=== PATIENT | female | born 1950 | race Caucasian/White ===

== ENCOUNTER 2021-02-24 09:38 | Outpatient (REF) | payer MEDICARE, SELFPAY ==
[2021-02-24 10:55] LABS: COVID-19 Test Negative (Negative); IDNOW Serial# 16C4AD1C
== END 2021-02-24 09:39 | disposition home or self-care (01) ==
LOC: HO.LAB 09:38
PROVIDERS: Visit Provider Internal Medicine
DX: Z20.822 Contact with and (suspected) exposure to COVID-19 (principal)
CPT/HCPCS: 36415; 87635; C9803

== ENCOUNTER 2021-03-12 09:41 | Outpatient (REF) | payer MEDICARE, SELFPAY ==
[2021-03-12 10:48] LABS: Binax Internal Control QC Valid; Binax Now Covid-19 Ag Negative (Negative)
== END 2021-03-12 09:42 | disposition home or self-care (01) ==
LOC: HO.LAB 09:41
PROVIDERS: Visit Provider Internal Medicine
DX: Z20.822 Contact with and (suspected) exposure to COVID-19 (principal)
CPT/HCPCS: 36415; C9803

== ENCOUNTER 2021-03-18 10:48 | Outpatient (REF) | payer MEDICARE, SELFPAY ==
[2021-03-18 12:38] LABS: COVID-19 Test Negative (Negative); IDNOW Serial# 16C4AD1C
== END 2021-03-18 10:49 | disposition home or self-care (01) ==
LOC: HO.LAB 10:48
PROVIDERS: Visit Provider Internal Medicine
DX: Z20.822 Contact with and (suspected) exposure to COVID-19 (principal)
CPT/HCPCS: 87635; C9803

== ENCOUNTER 2021-03-26 14:47 | Outpatient (REF) | payer MEDICARE, SELFPAY ==
[2021-03-26 15:07] LABS: Binax Internal Control QC Valid; Binax Now Covid-19 Ag Negative (Negative)
== END 2021-03-26 14:48 | disposition home or self-care (01) ==
LOC: HO.LAB 14:47
PROVIDERS: Visit Provider Internal Medicine
DX: Z20.822 Contact with and (suspected) exposure to COVID-19 (principal)
CPT/HCPCS: C9803

== ENCOUNTER 2021-04-01 13:20 | Outpatient (REF) | payer MEDICARE, SELFPAY ==
[2021-04-01 14:07] LABS: COVID-19 Test Negative (Negative)
== END 2021-04-01 13:21 | disposition home or self-care (01) ==
LOC: HO.LAB 13:20
PROVIDERS: Visit Provider Internal Medicine
DX: Z20.822 Contact with and (suspected) exposure to COVID-19 (principal)
CPT/HCPCS: 87635; C9803

== ENCOUNTER 2021-04-14 14:37 | Outpatient (REF) | payer MEDICARE, SELFPAY ==
[2021-04-14 14:56] LABS: COVID-19 Test Negative (Negative); IDNOW Serial# 16C4AD1C
== END 2021-04-14 14:38 | disposition home or self-care (01) ==
LOC: HO.LAB 14:37
PROVIDERS: PCP Internal Medicine; Visit Provider Internal Medicine
DX: Z20.822 Contact with and (suspected) exposure to COVID-19 (principal)
CPT/HCPCS: 87635; C9803

== ENCOUNTER 2021-05-07 15:21 | Outpatient (REF) | payer MEDICARE, SELFPAY ==
[2021-05-07 16:01] LABS: COVID-19 Test Negative (Negative)
== END 2021-05-07 15:22 | disposition home or self-care (01) ==
LOC: HO.LAB 15:21
PROVIDERS: Visit Provider Internal Medicine
DX: Z20.822 Contact with and (suspected) exposure to COVID-19 (principal)
CPT/HCPCS: 87635; C9803

== ENCOUNTER 2021-07-06 13:34 | Outpatient (REF) | payer MEDICARE, SELFPAY ==
[2021-07-06 14:08] LABS: COVID-19 Test Negative (Negative); IDNOW Serial# 08D9AD1C
== END 2021-07-06 13:35 | disposition home or self-care (01) ==
LOC: HO.LAB 13:34
PROVIDERS: Visit Provider Internal Medicine
DX: Z20.822 Contact with and (suspected) exposure to COVID-19 (principal)
CPT/HCPCS: 87635; C9803

== ENCOUNTER 2021-09-09 15:06 | Outpatient (REF) | payer MEDICARE, SELFPAY ==
[2021-09-09 15:57] LABS: COVID-19 Test Negative (Negative)
== END 2021-09-09 15:07 | disposition home or self-care (01) ==
LOC: HO.LAB 15:06
PROVIDERS: Visit Provider Internal Medicine
DX: Z20.822 Contact with and (suspected) exposure to COVID-19 (principal)
CPT/HCPCS: 87635; C9803

== ENCOUNTER 2021-09-14 10:22 | Outpatient (REF) | payer MEDICARE, SELFPAY ==
[2021-09-14 11:13] LABS: COVID-19 Test Negative (Negative); IDNOW Serial# 9DB6401D
== END 2021-09-14 10:23 | disposition home or self-care (01) ==
LOC: HO.LAB 10:22
PROVIDERS: Visit Provider Internal Medicine
DX: Z20.822 Contact with and (suspected) exposure to COVID-19 (principal)
CPT/HCPCS: 87635; C9803

== ENCOUNTER → 2022-11-01 09:57 | Outpatient (REF) | payer MEDICARE, SELFPAY ==
--- NOTE | 2022-11-01 10:01 | CA_ITS ---
Transthoracic Echocardiogram Patient (Last, First, Middle): Daisha Clinton, Gender: Female Date of : 1950 Age: 72 Procedure Date: 11/01/2022 Procedure Type: Transthoracic Echocardiogram Location: OP Height: 154.94 cm Weight: 49.9 kg BSA: 1.47 m2 Heart Rate: bpm BP: 136 / 86 mmHg Manager Life Sciences: MARLY Referring MD: Yeyo Parmar MD Symptoms: QUINTANILLA R06.09 R94.31 ABNORMAL EKG Study Quality: Adequate ECG Rhythm: Sinus Conclusions: - The left ventricular systolic function is normal. The calculated ejection fraction is 68% by biplane method. - No obvious valvular pathology seen on this study. Findings Left Ventricle Normal left ventricular cavity size. There is normal left ventricular wall thickness. The left ventricular systolic function is normal. The calculated ejection fraction is 68% by biplane method. There is no evidence of regional wall motion abnormalities. Diastolic function is normal for age. LV peak GLS -19.5%. Right Ventricle Normal right ventricular cavity size and systolic function. Atria Both atria are normal in size. Aortic Valve There is a normal trileaflet aortic valve. There is no aortic valve stenosis. There is no aortic valve regurgitation. Mitral Valve The mitral valve appears normal. There is trace mitral valve regurgitation. There is no mitral valve stenosis. Pulmonic Valve The pulmonic valve was not well visualized. Tricuspid Valve Normal tricuspid valve structure. There is trace tricuspid valve regurgitation. There is no evidence of pulmonary hypertension. Great Vessels The asc aorta is normal in size. Venous The inferior vena cava is mildly dilated and collapses greater than 50% with inspiration. Pericardium/Pleural There is no evidence of pericardial effusion. Prior Study Comparison No prior study available for comparison. Recommendations, Care & Conclusions No obvious valvular pathology seen on this study. Measurements 2D Linear Measurements IVSd: 0.83 0.6-0.9/0.6-1.0 cm LVIDd: 3.60 3.9-5.3/4.2-5.9 cm LVIDd Index: 2.45 2.4-3.2/2.2-3.1 cm/m2 LVIDs: 2.37 2.0-3.6 cm LVPWd: 0.61 0.7-1.1 cm LA Diam: 2.40 2.7-3.8/3.0-4.0 cm LAIDs Index: 1.63 1.5-2.3 cm/m2 LV Mass: 84.31 67-162/88-224 g LV Mass Index: 57.35 43-95/49-115 g/m2 LVOT Diam: 1.60 3.0+(-)1.3 cm 2D Systolic Function EF 4C: 66.80 >55% EF 2C: 67.90 >55% EF BiP: 67.90 >55% Mitral Valve MV Pk E: 0.93 MV PK A: 0.91 MV Decel Time: 221.00 E/A: 1.00 E'Lateral: 6.96 E'Medial: 5.87 E/E' Med: 15.90 E/E' Lat: 13.40 PHT: 65.00 MVA PHT: 3.38 Decel [place]: 4.23 Aortic Valve AoV Pk Zach: 1.19 AoV Mn Zach: 0.94 AoV VTI: 0.32 AoV Pk Grad: 6.00 Aov Mn Grad: 4.00 LARRY Cont.VTI: 1.49 LVOT LVOT Pk Zach: 0.99 LVOT Mn Zach: 0.71 LVOT VTI: 0.24 LVOT Pk Grad: 4.00 LVOT Mn Grad: 2.00 LVOT Diam: 1.60 LVOT Area: 2.01 Diastolic Function MV Pk E: 0.93 MV Pk A: 0.91 E/A: 1.00 E'Medial: 5.87 E/E' Med: 15.90 E' Laterial: 6.96 E/E' Lat: 13.40 Right Ventricle TAPSE (mm): 23.00 TVS' Zach: 9.68 Tricuspid Valve TR Pk Zach: 2.00 TR Pk Grad: 16.00 RA Press: 8.00 RVSP: 24.00 Great Vessels Aorta Sinus of Valsalva: 3.23 2.0-3.5 cm Ao Asc: 3.30 2.1-3.4 cm Updated in Other Vendor System with Status of Final Jj Damon MD electronically signed on 11/01/2022 3:23:21 PM with status of Final
== END ==
LOC: HO.CARD 09:57
PROVIDERS: PCP Internal Medicine; Visit Provider Internal Medicine
DX: R06.09 Other forms of dyspnea (principal); R94.31 Abnormal electrocardiogram [ECG] [EKG]
CPT/HCPCS: 93306; 93356

== ENCOUNTER → 2022-11-01 10:01 | Outpatient (BNV) | payer MEDICARE, SELFPAY | PROVIDERS: PCP Internal Medicine; Visit Provider Internal Medicine | DX: R06.09 Other forms of dyspnea (principal); R94.31 Abnormal electrocardiogram [ECG] [EKG] | CPT/HCPCS: 93306 ==

== ENCOUNTER 2023-01-04 23:18 | Inpatient (IN) | payer MEDICARE, SELFPAY ==
--- NOTE | ~2023-01-04 | XR_ITS ---
EXAMINATION: XR CHEST CLINICAL INFORMATION: Question of free intraperitoneal air COMPARISON: None available. TECHNIQUE: Frontal view of the chest was obtained. FINDINGS: No significant abnormality is noted involving the heart, lungs, mediastinum, bony thorax or soft tissues. No free intraperitoneal air is seen beneath the hemidiaphragms. XR/XR chest 1V IMPRESSION: Unremarkable examination.
--- NOTE | ~2023-01-04 | CT_ITS ---
EXAMINATION: CT ABDOMEN AND PELVIS WITH CONTRAST CLINICAL INFORMATION: Epigastric pain. COMPARISON: None available. TECHNIQUE: Multidetector volumetric images were obtained from the superior aspect of the liver through the pubic symphysis following administration 85 mL of Omnipaque 350 intravenous contrast. Sagittal and coronal reformatted images were obtained on the technologist's workstation. Oral contrast: No This CT examination was performed using dose optimization techniques as appropriate, variously including the following: *Automated exposure control *Adjustment of mA and/or kV according to patient size (this includes techniques or standardized protocols for targeted exams where dose is matched to indication/reason for exam; i.e. extremities or head) *Use of iterative reconstruction technique DLP: 325 mGy-cm FINDINGS: LUNG BASES: The visualized lung bases are unremarkable. LIVER, GALLBLADDER, AND BILIARY TREE: The subcentimeter hypodensity at the dome of the liver likely a cyst. There is no intrahepatic biliary duct dilatation. The gallbladder is unremarkable with no evidence of radiopaque gallstones, gallbladder wall thickening, or obvious pericholecystic inflammatory changes. PANCREAS: Unremarkable. SPLEEN: Unremarkable. ADRENAL GLANDS: Unremarkable. KIDNEYS AND URETERS: The kidneys are normal in size, shape, and attenuation. No hydronephrosis, hydroureter, or calculi seen. No perinephric stranding. BLADDER: The urinary bladder is mildly distended. GASTROINTESTINAL TRACT: The appendix is not visualized. There is retained stool throughout the colon with some stool-like material within distal small bowel. There are prominent fluid-filled proximal to mid small bowel loops measuring up to 2.5 cm. The mid to distal small bowel is of normal caliber. ABDOMINAL WALL: No significant hernia is appreciated. LYMPH NODES: Normal. VASCULAR: Atherosclerotic plaque of the abdominal aorta and proximal branches. PELVIC VISCERA: The uterus is heterogeneous and slightly lobular. There is a small amount of free fluid within the pelvis. OSSEOUS STRUCTURES: There is diffuse thoracolumbar disc degenerative change. CT/CT abdomen pelvis w IV con IMPRESSION: Prominent fluid-filled proximal small bowel loops. Suspect an enteritis. Developing obstruction considered less likely. Correlation and follow-up needed. Retained stool throughout the colon with some stool-like material within distal small bowel possibly refluxed. Small amount of free fluid within the pelvis. Urinary bladder distention. Fleischner guidelines were followed.
[2023-01-04 23:27] VITALS: BP 181/87; PULSE 70; RESP 18; TEMP 36.7; O2SAT 99; BMI 20.2
--- NOTE | 2023-01-04 23:30 | PC.NURSE ---
pt from home reporting epigastric pain since 8pm. pt reports she was making dinner and before she was able to eat she got a sudden burning sensation in the epigastric region that radiated down her abdomen. pt reports 2 hours later she began to have nausea and vomiting. pt denies diarrhea, chest pain and SOB. pt able to ambulate at this time. pt normal sinus on tele [id number].
[2023-01-04 23:33] VITALS: O2SAT 98
--- NOTE | 2023-01-04 23:33 | ECG_ITS ---
Test Reason : abd pain Blood Pressure : / mmHG Vent. Rate : 069 BPM Atrial Rate : 069 BPM P-R Int : 174 ms QRS Dur : 082 ms QT Int : 416 ms P-R-T Axes : 058 053 059 degrees QTc Int : 445 ms Normal sinus rhythm Low voltage QRS Borderline ECG No previous ECGs available Referred By: Kacey Nguyen Electronically Signed By:NATALIIA SALAS MD
--- NOTE | 2023-01-04 23:48 | ED.ABDPAIN ---
HPI - Abdominal Pain General Chief Complaint: Abdominal Pain Stated Complaint: abdominal pain, nausea Time Seen by Provider: 01/04/23 23:33 Source: patient Mode of arrival: ambulatory Limitations: no limitations History of Present Illness HPI narrative: Patient comes to the emergency room complaining of nausea, 1 episode of vomiting and epigastric pain , burning sensation that started approximately 4 hours ago. Patient denies diarrhea, no fever or chills. Patient states that she was at home preparing dinner, did not get to eat, when the abdominal pain suddenly started. Patient states the epigastric pain radiates towards the lower abdomen. Patient admits that she takes 400 mg daily of ibuprofen for different musculoskeletal pains. Patient takes omeprazole at home Related Data Allergies Allergy/AdvReac Type Severity Reaction Status Date / Time No Known Allergies Allergy Verified 01/04/23 23:32 Review of Systems Review of Systems Constitutional : No Weight loss, No Fever, No Chills, No Night Sweats, No Fatigue, No Malaise ENT/Mouth : No Hearing loss, No Ear Pain, No Nasal Congestion, No Sinus Pain, No Hoarseness, No sore throat, No Rhinorrhea, No Swallowing Difficulty Eyes: No Eye Pain, No Swelling, No Redness, No Foreign Body, No Discharge, No Vision Changes Cardiovascular : No Chest Pain, No SOB, No Dyspnea on Exertion, No Orthopnea, No Edema, No Palpitations Respiratory : No Cough, No Sputum, No Wheezing, No Smoke Exposure, No Dyspnea Gastrointestinal : Complaining of nausea vomit No Diarrhea, No Constipation, complaining of burning epigastric pain, No Hematochezia, No Melena Genitourinary : no irregular bleeding, No Dysuria, No Urinary Frequency, No Hematuria, No Urinary Incontinence, No Urgency, No Flank Pain, No Urinary Flow Changes, No Hesitancy Musculoskeletal : No joint pain, No Myalgias, No Joint Swelling Skin : No Skin Lesions, No rash Neuro : No Weakness, No Numbness, No Paresthesias, No Loss of Consciousness, No Dizziness, No Headache Psych : No Anxiety/Panic, No Depression, No SI/HI/AH/VH, No Social Issues, Heme/Lymph: No Bruising, No Bleeding,No Lymphadenopathy Endocrine : No Polyuria, No Polydipsia, No Temperature Intolerance [facility] Past Medical History Medical History (Updated 01/05/23 @ 04:07 by Kacey Nguyen MD) Hypertension GERD (gastroesophageal reflux disease) Social History Social History Alcohol intake: current Alcohol intake frequency: 0-2 drinks per day Smoked in Last 30 Days: No Use of substances other than those prescribed or required for medical reasons: No Advance Directives: No Advance Directives Information Provided: Yes Physical Exam ED Vital Signs: Vital Signs - 24 hr 01/04/23 23:27 01/04/23 23:33 01/05/23 01:35 Temperature 98.1 F 98.0 F Pulse Rate 70 69 Respiratory Rate 18 18 Blood Pressure 181/87 H 183/95 H Pulse Oximetry 99 98 98 Oxygen Delivery Method Room Air Room Air Room Air 01/05/23 03:12 Temperature 98.1 F Pulse Rate 77 Respiratory Rate 16 Blood Pressure 130/79 Pulse Oximetry 96 Oxygen Delivery Method Room Air BMI result Body Mass Index 20.2 Const Other: Appearance: Alert. Oriented X3. No acute distress. All appear Eyes: Pupils equal, round and reactive to light. ENT: Pharynx normal. Neck: Normal inspection. Neck supple. No lymph nodes noted. No crepitus CVS: Normal heart rate and rhythm. Pulses normal. Normal S1 and S2 Respiratory: No respiratory distress. Breath sounds normal. No Wheezing. No rales Abdomen: Soft , mild tenderness in epigastric area and left upper quadrant. No rebound, no guarding, negative Pickering sign Skin: Skin warm and dry. Normal skin color. Normal skin turgor. Extremities: No lower extremity edema. No Lacerations. No Rash Neuro: Oriented X 3. No motor deficit. No sensory deficit. Moving all extremities. No slurred speech. CN 2 through 12 grossly intact Psych: calm, cooperative, normal affect Course Course Course Narrative: -patient receiving IV fluids, famotidine, Zofran -of patient's labs and imaging pending Medical Decision Making Medical Decision Making MDM Narrative: -my interpretation of labs, hemoglobin and chemistry do not show any significant abnormalities. LFTs and lipase within normal limits. -patient was given IV Zofran, Pepcid without any relief. Then patient was given a dose of IV morphine. Patient still complaining of significant abdominal pain. Patient was given a dose of Dilaudid and a dose of Compazine IV for ongoing nausea. -CT scan of the abdomen shows enteritis. -patient has had multiple doses of morphine and Dilaudid. Patient overall feeling better. However, given the large amount of pain medications that she has required to be comfortable and have the pain tolerable, is best if patient gets admitted. -I discussed the patient with Dr. Joe, patient being admitted. Patient agrees with plan. Differential Diagnosis Differential Diagnoses: The differential diagnosis associated with the presentation includes (Gastroenteritis, enteritis, peptic ulcer disease, perforation, small-bowel obstruction) Admission/Observation Consideration of admission/observation: Escalation of care including admission/observation considered Consult Healthcare Provider Management of the patient was discussed with: Hospitalist Lab Data MDM Lab Attestation statement: I reviewed the patient's lab results. 01/04/23 23:43 01/05/23 00:58 Labs: Lab Results 01/04/23 01/05/23 01/05/23 Range/Units 23:43 00:58 02:08 WBC 10.9 H (4.8-10.8) X10*3/uL RBC 3.79 L (4.20-5.50) X10*6/uL Hgb 12.6 (12.0-16.0) g/dl Hct 35.7 L (37.0-47.0) % MCV 94.2 (80.0-98.0) fL MCH 33.2 H (27.0-33.0) pg MCHC 35.3 H (31.0-35.0) g/dl RDW 12.0 (11.0-16.0) % Plt Count 176 (160-400) X10*3/uL MPV 10.4 (9.4-12.3) fL Immature Gran % (Auto) 1.0 H (0.0-0.4) % Neut % (Auto) 82.6 H (45-73) % Lymph % (Auto) 10.7 L (20-40) % [place] % (Auto) 5.0 (2-11) % Eos % (Auto) 0.3 (0-4) % Baso % (Auto) 0.4 (0-2) % Lymph # (Auto) 1.2 (1.2-4.9) X10*3/uL [place] # (Auto) 0.5 (0.1-1.2) X10*3/uL Eos # (Auto) 0.0 (0.0-0.4) X10*3/uL Baso # (Auto) 0.0 (0.0-0.2) X10*3/uL Abs Immat Gran (auto) 0.11 H (0.00-0.03) X10*3/uL Absolute Neuts (auto) 9.0 H (2.0-8.3) x10*3/uL Absolute Nucleated RBC 0.000 (0.0-0.012) X10*3/uL Nucleated RBC % (auto) 0.0 (0.0-0.2) /100WBC Sodium 133 L (135-145) mmol/L Potassium 3.5 (3.3-5.1) mmol/L Chloride 99 (96-108) mmol/L Carbon Dioxide 17 L (22-29) mmol/L Anion Gap 21 H (12-20) BUN 9 (9-16) mg/dL Creatinine 0.60 (0.5-1.4) mg/dL Estim Creat Clear Calc 67.0 Estimated GFR > 60 Random Glucose 122 H (60-115) mg/dL Calcium 9.1 (8.4-10.2) mg/dL Total Bilirubin 0.6 (0.0-1.0) mg/dL Direct Bilirubin 0.2 (0.0-0.5) mg/dL AST 29 (5-31) U/L ALT 17 (0-31) U/L Alkaline Phosphatase 67 (39-117) U/L Troponin I High Sens < 2.7 (<3.5-17.0) ng/L Total Protein 6.9 (6.5-8.0) g/dL Albumin 4.1 (3.5-5.0) g/dL Lipase 25 (8-78) U/L Urine Color Yellow Urine Appearance Clear Urine pH 7.0 (5.0-9.0) Ur Specific [place] 1.020 (1.005-1.025) Urine Protein Negative (Neg-Trace) mg/dL Urine Glucose (UA) Negative (Negative) mg/dL Urine Ketones Trace (Negative) mg/dL Urine Blood Negative (Negative) Urine Nitrite Negative (Negative) Ur Leukocyte Esterase Negative (Negative) Independent Interpretation I performed an independent interpretation of an: EKG (My interpretation of EKG: Normal sinus rhythm, heart rate 69, no ST segment depression or elevation, no T-wave inversion, QTC 445) Radiology Impression Discussion of test interpretation with radiology: I have reviewed the radiologist's reading. Radiologist Impression: FINDINGS: LUNG BASES: The visualized lung bases are unremarkable. LIVER, GALLBLADDER, AND BILIARY TREE: The subcentimeter hypodensity at the dome of the liver likely a cyst. There is no intrahepatic biliary duct dilatation. The gallbladder is unremarkable with no evidence of radiopaque gallstones, gallbladder wall thickening, or obvious pericholecystic inflammatory changes. PANCREAS: Unremarkable. SPLEEN: Unremarkable. ADRENAL GLANDS: Unremarkable. KIDNEYS AND URETERS: The kidneys are normal in size, shape, and attenuation. No hydronephrosis, hydroureter, or calculi seen. No perinephric stranding. BLADDER: The urinary bladder is mildly distended. GASTROINTESTINAL TRACT: The appendix is not visualized. There is retained stool throughout the colon with some stool-like material within distal small bowel. There are prominent fluid-filled proximal to mid small bowel loops measuring up to 2.5 cm. The mid to distal small bowel is of normal caliber. ABDOMINAL WALL: No significant hernia is appreciated. LYMPH NODES: Normal. VASCULAR: Atherosclerotic plaque of the abdominal aorta and proximal branches. PELVIC VISCERA: The uterus is heterogeneous and slightly lobular. There is a small amount of free fluid within the pelvis. OSSEOUS STRUCTURES: There is diffuse thoracolumbar disc degenerative change. CT/CT abdomen pelvis w IV con IMPRESSION: Prominent fluid-filled proximal small bowel loops. Suspect an enteritis. Developing obstruction considered less likely. Correlation and follow-up needed. Retained stool throughout the colon with some stool-like material within distal small bowel possibly refluxed. Small amount of free fluid within the pelvis. Urinary bladder distention. Fleischner guidelines were followed. Medications Administered Discontinued Medications Generic Name Dose Route Start Last Admin Trade Name Freq PRN Reason Stop Dose Admin Famotidine 20 mg 01/04/23 23:42 01/05/23 00:33 Famotidine/Pf 20 Mg/2 Ml Vial IVPUSH 01/04/23 23:43 20 mg ONCE ONE Administration Hydromorphone HCl 1 mg 01/05/23 01:32 01/05/23 02:04 Hydromorphone Hcl 1 Mg/Ml Syringe IVPUSH 01/05/23 01:33 1 mg ONCE ONE Administration Protocol Sodium Chloride 1,000 mls @ 999 mls/hr 01/04/23 23:42 01/05/23 02:07 Ns IVCONT 01/05/23 00:42 Infused .Q1H1M ONE Infusion Iohexol 85 ml 01/05/23 01:47 01/05/23 01:48 Iohexol 350 Mg/Ml 100 Ml Infus..Btl IV 01/05/23 01:48 85 ml ONCE ONE Administration Morphine Sulfate 4 mg 01/05/23 00:43 01/05/23 00:50 Morphine Sulfate 4 Mg/Ml Cartridge IVPUSH 01/05/23 00:44 4 mg ONCE ONE Administration Protocol Ondansetron HCl 4 mg 01/04/23 23:42 01/05/23 00:33 Ondansetron Hcl 4 Mg/2 Ml Vial IVPUSH 01/04/23 23:43 4 mg ONCE ONE Administration Prochlorperazine Edisylate 10 mg 01/05/23 01:34 01/05/23 02:04 Prochlorperazine Edisylate 10 Mg/2 Ml Vial IVPUSH 01/05/23 01:35 10 mg ONCE ONE Administration Critical Care Time Critical Care Time Critical Care Time: Yes Total Critical Care Time: 60 Attestation: I have personally provided critical care time. Time includes review of lab data, radiology results, discussion with consultants, and monitoring for potential decompensation. Intervention performed as documented. Discharge Plan Discharge Clinical Impression: Enteritis Patient Disposition: Admitted As Inpatient
[2023-01-05] VITALS (9 sets, daily range): BP systolic 130–183; BP diastolic 74–100; PULSE 69–77; RESP 11–18; TEMP 36.3–36.8; O2SAT 96–99; BMI 21.9
--- NOTE | 2023-01-05 00:27 | MHC.EDTECH ---
Late Entry, This tech took over care at 2335, Patient was placed on the cardiac rn and EKG taken.
[2023-01-05] MEDS: 0.9 % Sodium Chloride 1,000 ML 999 ML IVCONT (00:32)
[2023-01-05] MEDS: ondansetron HCL 4 MG/2 ML VIAL IVPUSH ×3 (00:33→20:48)
[2023-01-05] MEDS: Famotidine/PF 20 MG/2 ML VIAL IVPUSH (00:33)
[2023-01-05 00:41] LABS: Basophils Percent Auto 0.4 % (0-2); Eosinophils Percent Auto 0.3 % (0-4); Hematocrit 35.7 % (37.0-47.0); Hemoglobin 12.6 g/dl (12.0-16.0); Imm Gran Abs Auto 0.11 X10*3/uL (0.00-0.03); Lymphocytes Absolute Auto 1.2 X10*3/uL (1.2-4.9); Lymphocytes Percent Auto 10.7 % (20-40); MANUAL DIFF FLAG NO; Mean Corpuscular HGB Conc 35.3 g/dl (31.0-35.0); Mean Corpuscular Hemoglobin 33.2 pg (27.0-33.0); Mean Corpuscular Volume 94.2 fL (80.0-98.0); Mean Platelet Volume 10.4 fL (9.4-12.3); Monocytes Absolute Auto 0.5 X10*3/uL (0.1-1.2); Neutrophils Percent Auto 82.6 % (45-73); Platelet Count 176 X10*3/uL (160-400); Red Blood Count 3.79 X10*6/uL (4.20-5.50); White Blood Count 10.9 X10*3/uL (4.8-10.8)
[2023-01-05] MEDS: Morphine Sulfate 4 MG/ML CARTRIDGE IVPUSH (00:50)
[2023-01-05 01:21] LABS: Alanine Aminotransferase 17 U/L (0-31); Albumin Level 4.1 g/dL (3.5-5.0); Alkaline Phosphatase 67 U/L (39-117); Anion Gap 21 (12-20); Aspartate Amino Transferase 29 U/L (5-31); Bilirubin Direct 0.2 mg/dL (0.0-0.5); Bilirubin Total 0.6 mg/dL (0.0-1.0); Blood Urea Nitrogen 9 mg/dL (9-16); Calcium 9.1 mg/dL (8.4-10.2); Carbon Dioxide 17 mmol/L (22-29); Chloride 99 mmol/L (96-108); Estimated Glomerular Filt Rate > 60; Glucose Random 122 mg/dL (60-115); Lipase 25 U/L (8-78); Potassium 3.5 mmol/L (3.3-5.1); Sodium 133 mmol/L (135-145); Total Protein 6.9 g/dL (6.5-8.0)
[2023-01-05 01:27] LABS: Troponin-I High Sensitivity < 2.7 ng/L (<3.5-17.0)
[2023-01-05] MEDS: iohexoL 350 MG/ML 100 ML INFUS..BTL 85 ML IV (01:48)
--- NOTE | 2023-01-05 01:51 | MHC.EDTECH ---
Hourly rounds and vitals were completed,Patient's BP is elevated at 183/69 and patient stated she was still in pain and being nauseous,this tech made provider and RN aware. .
[2023-01-05] MEDS: Prochlorperazine Edisylate 10 MG/2 ML VIAL IVPUSH (02:04)
[2023-01-05] MEDS: HYDROmorphone HCl 1 MG/ML SYRINGE IVPUSH (02:04)
[2023-01-05 02:16] LABS: Appearance Urine Clear; Color Urine Yellow; Glucose Urine UA Negative (Negative); Leukocyte Esterase Urine Negative (Negative); Nitrite Urine Negative (Negative); Urine Blood Negative (Negative); Urine Ketones Trace mg/dL (Negative); Urine Protein Negative (Neg-Trace)
--- NOTE | 2023-01-05 04:09 | PC.NURSE ---
hospitalist at bedside discussing pt care with admission.
--- NOTE | 2023-01-05 04:20 | PM.IMHP ---
History of Present Illness Date of Service: 01/05/23 Chief Complaint: N/V 72F PMH HTN, GERD, chronic shoulder pain on ibuprofen 400mg bid, presented with nausea and vomiting. patient reports feeling well until evening of presentation. she was cooking dinner and suddenly felt epigastric burining pain. started to have nausea and vomitting. denies fever, chills, no sick contacts. in ED CT abd showed Prominent fluid-filled proximal small bowel loops. Suspect an enteritis. Developing obstruction considered less likely. Review of Systems Review of Systems: Yes all other systems are reviewed and are negative [facility] Medical History (Updated 01/05/23 @ 04:07 by Kacey Nguyen MD) Hypertension GERD (gastroesophageal reflux disease) Social History Alcohol intake: current Alcohol intake frequency: 0-2 drinks per day Smoked in Last 30 Days: No Use of substances other than those prescribed or required for medical reasons: No Advance Directives: No Advance Directives Information Provided: Yes Meds Allergies Allergy/AdvReac Type Severity Reaction Status Date / Time No Known Allergies Allergy Verified 01/04/23 23:32 Active Medications: Current Medications Enoxaparin Sodium (Enoxaparin Sodium 40 Mg/0.4 Ml Syringe) 40 mg SUBCUT Q24H ANDREZ Hydromorphone HCl (Hydromorphone Hcl 0.5 Mg/0.5 Ml Syringe) 0.5 mg IVPUSH Q4H PRN; Protocol PRN Reason: moderate pain Sodium Chloride (Ns) 1,000 mls @ 75 mls/hr IVCONT .[id number] [facility] Ondansetron HCl (Ondansetron Hcl 4 Mg/2 Ml Vial) 4 mg IVPUSH Q6H PRN PRN Reason: Nausea Sodium Chloride (0.9 % Sodium Chloride Flush 3 Ml Syringe) 3 ml IVFLUSH QSHIFT [facility] Home Medications Medication Instructions Recorded Confirmed Last Taken Type lisinopril 10 mg tablet 10 mg PO DAILY 01/05/23 01/05/23 Unknown History omeprazole 20 mg capsule,delayed 20 mg PO DAILY 01/05/23 01/05/23 Unknown History release Physical Exam Vital Signs and Narrative: Vital Signs: Last Vital Signs Temp 98.1 F 01/05/23 03:12 Pulse 77 01/05/23 03:12 Resp 16 01/05/23 03:12 BP 130/79 01/05/23 03:12 Pulse Ox 96 01/05/23 03:12 O2 Del Method Room Air 01/05/23 03:12 BMI result Body Mass Index 20.2 General: AO X 3, no acute distress Resp: CTA bilateral, no accessory muscles used CVS: S1,S2,RRR GI: soft, non tender, non distended Neuro: motor grossly intact, alert Psych: appropriate affect, appropriate insight Results Labs 01/04/23 23:43 01/05/23 00:58 Labs: Laboratory Results - last 24 hr 01/04/23 01/05/23 01/05/23 23:43 00:58 02:08 MCV 94.2 MCH 33.2 H MCHC 35.3 H RDW 12.0 Plt Count 176 MPV 10.4 Immature Gran % (Auto) 1.0 H Neut % (Auto) 82.6 H Lymph % (Auto) 10.7 L [place] % (Auto) 5.0 Eos % (Auto) 0.3 Baso % (Auto) 0.4 Lymph # (Auto) 1.2 [place] # (Auto) 0.5 Eos # (Auto) 0.0 Baso # (Auto) 0.0 Abs Immat Gran (auto) 0.11 H Absolute Neuts (auto) 9.0 H Absolute Nucleated RBC 0.000 Nucleated RBC % (auto) 0.0 Anion Gap 21 H Estim Creat Clear Calc 67.0 Estimated GFR > 60 Random Glucose 122 H Calcium 9.1 Total Bilirubin 0.6 Direct Bilirubin 0.2 AST 29 ALT 17 Alkaline Phosphatase 67 Total Protein 6.9 Albumin 4.1 Lipase 25 Urine Color Yellow Urine Appearance Clear Urine pH 7.0 Ur Specific [place] 1.020 Urine Protein Negative Urine Glucose (UA) Negative Urine Ketones Trace Urine Blood Negative Urine Nitrite Negative Ur Leukocyte Esterase Negative Imaging Radiologist's Impressions: Impressions Chest X-Ray 01/04/23 23:59 IMPRESSION: Unremarkable examination. Abdomen/Pelvis CT 01/05/23 01:55 IMPRESSION: Prominent fluid-filled proximal small bowel loops. Suspect an enteritis. Developing obstruction considered less likely. Correlation and follow-up needed. Retained stool throughout the colon with some stool-like material within distal small bowel possibly refluxed. Small amount of free fluid within the pelvis. Urinary bladder distention. Fleischner guidelines were followed. Assessment and Plan (1) Enteritis: Status: Acute Plan 72F PMH HTN, GERD, chronic shoulder pain on ibuprofen 400mg bid, presented with nausea and vomitting acute enteritis IVF, antiemetics, pain control, clears liquid diet for now, advance as tolerated htn lisinopril gerd ppi dvt prophylaxis - lovenox full code Quality Stroke Does the patient have a stroke diagnosis?: No VTE Prior VTE?: No VTE Risk Level:: Medical - moderate - high VTE Device Contraindication: Treatment Not Indicated VTE Drug Contraindication: N/A - Med Ordered
--- NOTE | 2023-01-05 04:35 | PC.NURSE ---
this rn and physician relations manager catalina completed pt medreq. pt reports she takes omeprazol in the morning as well as a womens multivitamin. pt reports taking lisinapril in the pm as well as 2 100mg colace.
[2023-01-05] MEDS: 0.9 % Sodium Chloride 1,000 ML 75 ML IVCONT ×2 (04:53→17:53)
[2023-01-05] MEDS: HYDROmorphone HCl 0.5 MG/0.5 ML SYRINGE IVPUSH ×3 (05:58→20:47)
--- NOTE | 2023-01-05 06:04 | PC.NURSE ---
pt actively vomiting and in pain at this time, hospitalist Lissy, telephone order okay to give nausea medication and pain medication early.
--- NOTE | 2023-01-05 06:42 | PC.NURSE ---
pt reports nausea, vomiting and pain has subsided.
--- NOTE | 2023-01-05 07:36 | PHA.MEDREC ---
Pharmacy Consult ? Medication Reconciliation Pharmacy has completed the medication reconciliation. pharmacy has reviewed med rec done by nursing
--- NOTE | 2023-01-05 09:35 | MHC.CM.PN ---
[place]hel[place] 01/05/23, Pt lives independently, she has no home health services or med equip. she has not utilized VNA services or STR. HCP is her , she completed form here for file. will transport home. Plan is home, self care. PCP: Yeyo Parmar
[2023-01-05] MEDS: Enoxaparin Sodium 40 MG/0.4 ML SYRINGE SUBCUT (10:44)
[2023-01-05] MEDS: lisinopriL 10 MG TABLET PO (10:44)
[2023-01-05] MEDS: Docusate Sodium 100 MG CAPSULE 200 MG PO (10:44)
[2023-01-05] MEDS: Omeprazole 20 MG CAPSULE.DR PO (10:50)
--- NOTE | 2023-01-05 11:06 | P.CONGS_ITS ---
History of Present Illness Consult details Consult date: 01/05/23 Requesting physician: Ting Singh Narrative: 72 year old female with PMH of HTN, HERD who presented to the ED with complaints of abdominal pain. She reports the pain started around 8pm while she was preparing dinner. The pain is located in the epigastric region and radiates down to her lower abdomen and was severe. It was associated with one episode of nausea and vomiting. She denies passing flatus but had a normal BM yesterday morning. She denies fever, chills, diarrhea, blood in stool or dark tarry stools, back pain. Work up in the ED included CBC, BMP, LFTs which was significant for a mild leukocytosis of 10.9. CT scan without PO contrast showed prominent fluid-filled proximal small bowel loops. This morning she feels somewhat improved and the pain is less severe. Her last colonoscopy was in 2019 and showed diverticulosis. She has no previous abdominal surgeries. Review of Systems 2 Constitutional: Constitutional: Reports as per HPI ENT: Denies dizziness Cardiovascular: Cardiovascular: Denies chest pain and Denies dyspnea Respiratory: Respiratory: Denies cough and Denies dyspnea Gastrointestinal: Gastrointestinal: Reports as per HPI Integumentary/Breasts: Skin/Breast: Denies rash and Denies jaundice Neurologic: Denies dizziness PMFSH Past Medical History Medical History (Updated 01/05/23 @ 04:07 by Kacey Nguyen MD) Hypertension GERD (gastroesophageal reflux disease) Social History Social History Alcohol intake: current Alcohol intake frequency: 0-2 drinks per day Patient Tobacco Use Status: Never used Tobacco Smoked in Last 30 Days: No Use of substances other than those prescribed or required for medical reasons: No Advance Directives: No Advance Directives Information Provided: Yes Nutrition Risks: No Nutritional Risk service: No Meds Allergies Allergy/AdvReac Type Severity Reaction Status Date / Time No Known Allergies Allergy Verified 01/04/23 23:32 Active Medications: Current Medications Docusate Sodium (Docusate Sodium 100 Mg Capsule) 200 mg PO DAILY [facility] Last Admin: 01/05/23 10:44 Dose: 200 mg Enoxaparin Sodium (Enoxaparin Sodium 40 Mg/0.4 Ml Syringe) 40 mg SUBCUT Q24H [facility] Last Admin: 01/05/23 10:44 Dose: 40 mg Hydromorphone HCl (Hydromorphone Hcl 0.5 Mg/0.5 Ml Syringe) 0.5 mg IVPUSH Q4H PRN; Protocol PRN Reason: moderate pain Last Admin: 01/05/23 10:44 Dose: 0.5 mg Sodium Chloride (Ns) 1,000 mls @ 75 mls/hr IVCONT .[id number] [facility] Last Admin: 01/05/23 04:53 Dose: 75 mls/hr Lisinopril (Lisinopril 10 Mg Tablet) 10 mg PO DAILY [facility]; Protocol Last Admin: 01/05/23 10:44 Dose: 10 mg Omeprazole (Omeprazole 20 Mg Capsule.Dr) 20 mg PO DAILY [facility] Last Admin: 01/05/23 10:50 Dose: 20 mg Ondansetron HCl (Ondansetron Hcl 4 Mg/2 Ml Vial) 4 mg IVPUSH Q6H PRN PRN Reason: Nausea Last Admin: 01/05/23 05:59 Dose: 4 mg Sodium Chloride (0.9 % Sodium Chloride Flush 3 Ml Syringe) 3 ml IVFLUSH QSHIFT [facility] Last Admin: 01/05/23 08:41 Dose: Not Given Home Medications Medication Instructions Recorded Confirmed Last Taken Type Multi Vitamin See Rx Instructions .Route .COMPLEX 01/05/23 01/05/23 Unknown History docusate sodium 100 mg capsule 200 mg PO DAILY 01/05/23 01/05/23 Unknown History (Colace) lisinopril 10 mg tablet 10 mg PO DAILY 01/05/23 01/05/23 Unknown History omeprazole 20 mg capsule,delayed 20 mg PO DAILY 01/05/23 01/05/23 Unknown History release Physical Exam 2 Vital Signs: Vital Signs: Last Vital Signs Temp 98.1 F 01/05/23 03:12 Pulse 73 01/05/23 05:32 Resp 11 L 01/05/23 05:32 BP 138/100 H 01/05/23 05:32 Pulse Ox 99 01/05/23 05:32 O2 Del Method Room Air 01/05/23 05:32 BMI result Body Mass Index 20.2 Const: General: comfortable, no acute distress and alert O rientation/consciousness: patient oriented x3 Resp: Effort & Inspection: normal respiratory effort Cardio: Rate: regular rate GI: Inspection: No distended and No scar Palpation (GI): Soft to palpation, Tenderness to palpation present (GI) in the epigastrum (very mild to deep palpation), no guarding and not rigid Percussion: Yes normal to percussion Skin: General skin exam: no rashes or lesions noted Neuro: General: patient oriented x3 and moves all extremities Results Labs 01/04/23 23:43 01/05/23 00:58 Labs: Abnormal lab results 01/04/23 01/05/23 Range/Units 23:43 00:58 WBC 10.9 H (4.8-10.8) X10*3/uL RBC 3.79 L (4.20-5.50) X10*6/uL Hct 35.7 L (37.0-47.0) % MCH 33.2 H (27.0-33.0) pg MCHC 35.3 H (31.0-35.0) g/dl Immature Gran % (Auto) 1.0 H (0.0-0.4) % Neut % (Auto) 82.6 H (45-73) % Lymph % (Auto) 10.7 L (20-40) % Abs Immat Gran (auto) 0.11 H (0.00-0.03) X10*3/uL Absolute Neuts (auto) 9.0 H (2.0-8.3) x10*3/uL Sodium 133 L (135-145) mmol/L Carbon Dioxide 17 L (22-29) mmol/L Anion Gap 21 H (12-20) Random Glucose 122 H (60-115) mg/dL Short CBC 01/04/23 Range/Units 23:43 WBC 10.9 H (4.8-10.8) X10*3/uL Hgb 12.6 (12.0-16.0) g/dl Hct 35.7 L (37.0-47.0) % Plt Count 176 (160-400) X10*3/uL BMP 01/05/23 00:58 Sodium 133 L Potassium 3.5 Chloride 99 Carbon Dioxide 17 L BUN 9 Creatinine 0.60 Calcium 9.1 Liver Function 01/05/23 Range/Units 00:58 Total Bilirubin 0.6 (0.0-1.0) mg/dL Direct Bilirubin 0.2 (0.0-0.5) mg/dL AST 29 (5-31) U/L ALT 17 (0-31) U/L Alkaline Phosphatase 67 (39-117) U/L Albumin 4.1 (3.5-5.0) g/dL Urine 01/05/23 Range/Units 02:08 Urine Color Yellow Urine Appearance Clear Urine pH 7.0 (5.0-9.0) Ur Specific [place] 1.020 (1.005-1.025) Urine Protein Negative (Neg-Trace) mg/dL Urine Glucose (UA) Negative (Negative) mg/dL All other labs normal. Imaging Abdomen CT scan report/results: report reviewed and image reviewed Assessment and Plan (1) Enteritis: Status: Acute Plan 72 year old female who presented with acute onset of abdominal pain, nausea and vomiting with CT scan showing possible small bowel dilatation. Her abdomen is benign and soft and nondistended. Clinically she is not obstructed. Picture more suggestive of enteritis. Can manage supportively and advance diet as tolerated. If symptoms recur or worsen can consider SBFT or CT with oral contrast to further evaluate for obstruction. Procedures Date of Service Date of Service: 01/05/23
--- NOTE | 2023-01-05 15:29 | PM.EVENT ---
Event Note Date of Service: 01/05/23 Event Note: Seen and evaluated Nausea improved since morning No bowel movements or passing gas yet No fever or chills Continue IVF and symptomatic measures Surgery input appreciated Time Spent With Patient Time: Total time managing care of this patient today ____ minutes.
[2023-01-06 03:39] VITALS: BP 147/76; PULSE 78; RESP 18; TEMP 36.5; O2SAT 95
[2023-01-06 05:47] LABS: Hematocrit 36.3 % (37.0-47.0); Hemoglobin 12.5 g/dl (12.0-16.0); Mean Corpuscular HGB Conc 34.4 g/dl (31.0-35.0); Mean Corpuscular Hemoglobin 33.2 pg (27.0-33.0); Mean Corpuscular Volume 96.5 fL (80.0-98.0); Mean Platelet Volume 10.2 fL (9.4-12.3); Platelet Count 167 X10*3/uL (160-400); Red Blood Count 3.76 X10*6/uL (4.20-5.50); Red Cell Distribution Width 12.3 % (11.0-16.0); White Blood Count 7.2 X10*3/uL (4.8-10.8)
[2023-01-06] MEDS: 0.9 % Sodium Chloride 1,000 ML 75 ML IVCONT (05:57)
[2023-01-06 06:05] LABS: Alanine Aminotransferase 13 U/L (0-31); Albumin Level 3.5 g/dL (3.5-5.0); Alkaline Phosphatase 58 U/L (39-117); Anion Gap 11 (12-20); Aspartate Amino Transferase 21 U/L (5-31); Bilirubin Direct 0.3 mg/dL (0.0-0.5); Bilirubin Total 0.9 mg/dL (0.0-1.0); Blood Urea Nitrogen 11 mg/dL (9-16); Calcium 8.4 mg/dL (8.4-10.2); Carbon Dioxide 24 mmol/L (22-29); Chloride 101 mmol/L (96-108); Creatinine Clr Calc Pharmacy 58.2; Estimated Glomerular Filt Rate > 60; Glucose Fasting 92 mg/dL (60-99); Magnesium 1.8 mg/dL (1.6-2.6); Potassium 3.4 mmol/L (3.3-5.1); Sodium 133 mmol/L (135-145); Total Protein 5.9 g/dL (6.5-8.0)
[2023-01-06 07:37] VITALS: BP 152/78; PULSE 76; RESP 20; TEMP 36.2; O2SAT 97
[2023-01-06] MEDS: lisinopriL 10 MG TABLET PO (08:29)
[2023-01-06] MEDS: Docusate Sodium 100 MG CAPSULE 200 MG PO (08:29)
[2023-01-06] MEDS: Enoxaparin Sodium 40 MG/0.4 ML SYRINGE SUBCUT (08:29)
[2023-01-06] MEDS: Omeprazole 20 MG CAPSULE.DR PO (08:29)
[2023-01-06] MEDS: Metoclopramide HCl 5 MG TABLET PO (08:34)
[2023-01-06 11:45] VITALS: BP 153/79; PULSE 77; RESP 20; TEMP 36.3; O2SAT 97
--- NOTE | 2023-01-06 14:54 | HO.PM.IMPN ---
Subjective Subjective Date of Service: 01/06/23 Interval History: Feels better overall less nausea, tolerating liquids passing gas but no bowel movement yet No fever or chills Review of Systems Review of Systems: Yes all other systems are reviewed and are negative Physical Exam Vital Signs: Vital Signs: Last Vital Signs Temp 97.3 F 01/06/23 11:45 Pulse 77 01/06/23 11:45 Resp 20 01/06/23 11:45 BP 153/79 H 01/06/23 11:45 Pulse Ox 97 01/06/23 11:45 O2 Del Method Room Air 01/06/23 11:45 BMI result Body Mass Index 21.9 Const: Other: Constitutional : Awake, interactive, not in distress Neck : Normal inspection, Supple Cardiovascular : RRR, no JVP, no lower extremity edema Respiratory : good bilateral air entry, no crackles, wheezes or rhonchi Gastrointestinal: soft, lax, slow bowel sounds, Non tender Skin : Warm, Dry Neurological : Alert & oriented x3, No focal deficit Objective Data Active Medications Docusate Sodium (Docusate Sodium 100 Mg Capsule) 200 mg PO DAILY [facility] Last Admin: 01/06/23 08:29 Dose: 200 mg Documented By: BRAD Enoxaparin Sodium (Enoxaparin Sodium 40 Mg/0.4 Ml Syringe) 40 mg SUBCUT Q24H [facility] Last Admin: 01/06/23 08:29 Dose: 40 mg Documented By: BRAD Hydromorphone HCl (Hydromorphone Hcl 0.5 Mg/0.5 Ml Syringe) 0.5 mg IVPUSH Q4H PRN; Protocol PRN Reason: moderate pain Last Admin: 01/05/23 20:47 Dose: 0.5 mg Documented By: ANISA Lisinopril (Lisinopril 10 Mg Tablet) 10 mg PO DAILY [facility]; Protocol Last Admin: 01/06/23 08:29 Dose: 10 mg Documented By: BRAD Omeprazole (Omeprazole 20 Mg Capsule.) 20 mg PO DAILY [facility] Last Admin: 01/06/23 08:29 Dose: 20 mg Documented By: BRAD Ondansetron HCl (Ondansetron Hcl 4 Mg/2 Ml Vial) 4 mg IVPUSH Q6H PRN PRN Reason: Nausea Last Admin: 01/05/23 20:48 Dose: 4 mg Documented By: ANISA Sodium Chloride (0.9 % Sodium Chloride Flush 3 Ml Syringe) 3 ml IVFLUSH QSHIFT [facility] Last Admin: 01/06/23 08:29 Dose: Not Given Documented By: BRAD Non-Admin Reason: IV Running Labs 01/06/23 05:18 01/06/23 05:18 Labs: Laboratory Results - last 24 hr 01/06/23 05:18 MCV 96.5 MCH 33.2 H MCHC 34.4 RDW 12.3 Plt Count 167 MPV 10.2 Absolute Nucleated RBC 0.000 Nucleated RBC % (auto) 0.0 Anion Gap 11 L Estim Creat Clear Calc 58.2 Estimated GFR > 60 Fasting Glucose 92 Calcium 8.4 D Magnesium 1.8 Total Bilirubin 0.9 Direct Bilirubin 0.3 AST 21 ALT 13 Alkaline Phosphatase 58 Total Protein 5.9 L Albumin 3.5 Assessment and Plan (1) Enteritis: Status: Acute Plan 72F PMH HTN, GERD, chronic shoulder pain on ibuprofen 400mg bid, presented with nausea and vomitting acute enteritis seems to be improving slowly. still unable to pass stool and barely passing gas. IVF to dc antiemetics pain control advance diet, advance as tolerated htn lisinopril gerd ppi dvt prophylaxis - lovenox full code Quality Stroke Does the patient have a stroke diagnosis?: No VTE Prior VTE?: No VTE Risk Level:: Medical - moderate - high VTE Device Contraindication: Treatment Not Indicated VTE Drug Contraindication: N/A - Med Ordered
[2023-01-06 15:19] VITALS: BP 139/78; PULSE 77; RESP 18; TEMP 36.8; O2SAT 98
[2023-01-06 18:54] VITALS: BP 155/82; PULSE 77; RESP 18; TEMP 36.9; O2SAT 97
[2023-01-06] MEDS: 0.9 % Sodium Chloride Flush 3 ML SYRINGE IVFLUSH (20:11)
[2023-01-06 23:11] VITALS: BP 168/86; PULSE 77; RESP 18; TEMP 36.6; O2SAT 98
[2023-01-07] MEDS: Melatonin 3 MG TABLET 6 MG PO (00:26)
[2023-01-07 03:04] VITALS: BP 136/75; PULSE 74; RESP 16; TEMP 37.1; O2SAT 97
[2023-01-07 06:56] LABS: Anion Gap 11 (12-20); Blood Urea Nitrogen 6 mg/dL (9-16); Calcium 8.5 mg/dL (8.4-10.2); Carbon Dioxide 25 mmol/L (22-29); Chloride 101 mmol/L (96-108); Creatinine Clr Calc Pharmacy 64.9; Estimated Glomerular Filt Rate > 60; Glucose Random 96 mg/dL (60-115); Potassium 3.3 mmol/L (3.3-5.1); Sodium 134 mmol/L (135-145)
[2023-01-07 07:20] VITALS: BP 159/82; PULSE 66; RESP 20; TEMP 36.2; O2SAT 95
[2023-01-07] MEDS: Enoxaparin Sodium 40 MG/0.4 ML SYRINGE SUBCUT (09:08)
[2023-01-07] MEDS: lisinopriL 10 MG TABLET PO (09:08)
[2023-01-07] MEDS: 0.9 % Sodium Chloride Flush 3 ML SYRINGE IVFLUSH (09:08)
[2023-01-07] MEDS: Docusate Sodium 100 MG CAPSULE 200 MG PO (09:09)
[2023-01-07] MEDS: Omeprazole 20 MG CAPSULE.DR PO (09:09)
[2023-01-07 11:07] VITALS: BP 160/91; PULSE 71; RESP 20; TEMP 36.3; O2SAT 100
--- NOTE | 2023-01-07 11:14 | P.DS_ITS ---
DS: Providers Provider Date of Service: 01/07/23 Date of admission: 01/05/23 04:17 Primary care physician: Yeyo Parmar MD Consults: 01/05/23 09:46 Consult to General Surgery Routine Consulting Provider: [facility] General Surgeons Reason for consultation: N\V with SBO signs for eval and rec. DS: Diagnosis Discharge Diagnosis (1) Enteritis: Status: Acute DS: Summary Hospital Course Hospital Course: Admission note HPI 72F PMH HTN, GERD, chronic shoulder pain on ibuprofen 400mg bid, presented with nausea and vomiting. patient reports feeling well until evening of presentation. she was cooking dinner and suddenly felt epigastric burining pain. started to have nausea and vomitting. denies fever, chills, no sick contacts. in ED CT abd showed Prominent fluid-filled proximal small bowel loops. Suspect an enteritis. Developing obstruction considered less likely. Hospital course The patient was admitted for abdominal pain with nausea and vomiting. CT scan of abdomen showed possible enteritis vs obstruction. evaluated by surgery team who recommended medical management. symptoms improved with IV fluids, bowel rest and symptomatic measures. started on clear liquids and advance to regular diet with good tolerance. Start Metamucil as fiber with goal of 1 bowel movement every 1-2 days Use Reglan as needed for nausea Increase physical activity as tolerated and drink plenty of fluids Time Attestation Discharge coordination time: Greater than 30 minutes Quality: Safe Use of Opioids Does Pt have an Active Cancer Diagnosis on the Problem List?: No Quality: Stroke Does the patient have a stroke diagnosis?: No Physical Exam Vital Signs: Vital Signs: Last Vital Signs Temp 97.4 F 01/07/23 11:07 Pulse 71 01/07/23 11:07 Resp 20 01/07/23 11:07 BP 160/91 H 01/07/23 11:07 Pulse Ox 100 01/07/23 11:07 O2 Del Method Room Air 01/07/23 11:07 BMI result Body Mass Index 21.9 Const: Other: Constitutional : Awake, interactive, not in distress Neck : Normal inspection, Supple Cardiovascular : RRR, no JVP, no lower extremity edema Respiratory : good bilateral air entry, no crackles, wheezes or rhonchi Gastrointestinal: soft, lax, normal bowel sounds, Non tender Skin : Warm, Dry Neurological : Alert & oriented x3, No focal deficit DS: Data Data Completed and Pending Labs on day of discharge: Laboratory Results - last 24 hr 01/07/23 06:00 Hold Purple Top SEE NOTE Sodium 134 L Potassium 3.3 Chloride 101 Carbon Dioxide 25 Anion Gap 11 L BUN 6 L Creatinine 0.62 Estim Creat Clear Calc 64.9 Estimated GFR > 60 Random Glucose [address] scan - abdomen: Radiologist's impression: ITS Impressions Chest X-Ray 01/04/23 23:59 IMPRESSION: Unremarkable examination. Abdomen/Pelvis CT 01/05/23 01:55 IMPRESSION: Prominent fluid-filled proximal small bowel loops. Suspect an enteritis. Developing obstruction considered less likely. Correlation and follow-up needed. Retained stool throughout the colon with some stool-like material within distal small bowel possibly refluxed. Small amount of free fluid within the pelvis. Urinary bladder distention. Fleischner guidelines were followed. Discharge Plan Discharge Anticipated Discharge Date/Time: 01/07/23 11:05 Patient Disposition: Home, Self-Care Discharge Diagnosis: Enteritis Referrals: Yeyo Parmar MD [Primary Care Provider] - 1 Week Discharge Medications: New Metamucil 3.4 gram/5.4 gram powder 1 tbsp PO BID Qty: 660 0RF Rx Instructions: mix into at least 8 oz of water or juice before administering metoclopramide HCl 5 mg tablet 5 mg PO Q8H Qty: 10 0RF Continued lisinopril 10 mg tablet 10 mg PO DAILY omeprazole 20 mg capsule,delayed release(DR/EC) 20 mg PO DAILY docusate sodium [Colace] 100 mg Capsule 200 mg PO DAILY Multi Vitamin See Rx Instructions .ROUTE .COMPLEX Patient Comments: takes daily in am womens mult vit. Rx Instructions: per md instructions Discharge Orders: Discharge Order (Routine); Ordered 01/07/23 Ordered By: Ting Singh Diet: Advance to usual diet Activity on Discharge: As tolerated Stand Alone Forms: Patient Portal Discharge page Care Plan Goals: Read below Health Concerns: Read below Plan of Treatment: Read below Assessment: You were admitted for treatment of enteritis with IV fluids and nausea medication along with bowel rest. Your symptoms improved during hospital stay as diet was advanced slowly with good tolerance. Start Metamucil as fiber with goal of 1 bowel movement every 1-2 days Use Reglan as needed for nausea Increase physical activity as tolerated and drink plenty of fluids
--- NOTE | 2023-01-07 11:20 | MHC.CM.PN ---
PT MEDICALLY CLEARED FOR DC HOME SELF CARE, PT WILL CONTACT HER FOR TRANSPORT
== END 2023-01-07 12:11 | disposition home or self-care (01) | DRG 392 ==
LOC: HO.ED 01-05 04:07 → HO.EDOVER 01-05 04:23 → HO.S3 01-05 08:32 → HO.EDOVER 01-05 08:44 → HO.IMC 01-05 09:14
PROVIDERS: Admitting Provider Internal Medicine; Emergency Provider Emergency Medicine; PCP Internal Medicine; Visit Provider Student in an Organized Health Care Education/Training Program
DX: K52.9 Noninfective gastroenteritis and colitis, unspecified (principal); K21.9 Gastro-esophageal reflux disease without esophagitis; I10 Essential (primary) hypertension; G89.29 Other chronic pain; M25.519 Pain in unspecified shoulder; Z79.899 Other long term (current) drug therapy
CPT/HCPCS: 36415; 71045; 74177; 80048; 80076; 81003; 83690; 83735; 84484; 85025; 85027; 93005; 99222; 99285; J1170; J1650; J2270; J2405; Q9967

== ENCOUNTER → 2023-01-05 04:17 | Outpatient (BNV) | payer MEDICARE, SELFPAY | PROVIDERS: Admitting Provider Internal Medicine; Emergency Provider Emergency Medicine; Visit Provider Internal Medicine | DX: K52.9 Noninfective gastroenteritis and colitis, unspecified (principal) | CPT/HCPCS: 99222; 99232; 99239; 99499 ==

== ENCOUNTER → 2023-01-05 04:17 | Outpatient (BNV) | payer MEDICARE, SELFPAY | PROVIDERS: Admitting Provider Internal Medicine; Emergency Provider Emergency Medicine; Visit Provider Physician Assistant Surgical | DX: K52.9 Noninfective gastroenteritis and colitis, unspecified (principal) | CPT/HCPCS: 99222 ==

== ENCOUNTER 2023-12-07 13:59 | Outpatient (AMB) | payer MEDICARE, SELFPAY ==
--- NOTE | 2023-12-07 14:19 | AM.OFFWIN_ITS ---
Intake Vital Signs 12/07/23 14:20 Height 5 ft 1 in Weight 113 lb BMI 21.3 BP 140/80 H Blood Pressure Location Rt brachial Position Sitting Pulse 70 Pulse Source Pulse Oximeter Pulse Oximetry (%) 100 Oxygen Delivery Method Room Air Intake Visit Reasons: EP twisted left ankle Intake Note: Patient here because about 10 days ago she tripped and fell, she is having pain and having issues flexing the left foot has been icing it whcih was helping initially but now its back to being swollen. Patient Tobacco Use Status: Former Tobacco user Allergies No Known Allergies Allergy (Verified 12/07/23 14:22) Do you need a note to return to daycare/school/sports/work: No HPI HPI Comments History of Present Illness Details Patient is a 73-year-old female complaining of left foot swelling and ankle pain. She states 10 days ago, she tripped and fell and twisted her ankle, she used ice ibuprofen and an Arturo bandage and it seemed to get better and then all of a sudden it got worse again. She is not sure if she has a fracture so she came into the clinic today to have it evaluated. [facility] Medical History (Updated 12/07/23 @ 14:57 by Kiara Hays PA-C) Hypertension GERD (gastroesophageal reflux disease) Social History Alcohol intake: current Alcohol intake frequency: 0-2 drinks per day Patient Tobacco Use Status: Former Tobacco user service: No Review of Systems Const All systems reviewed & are unremarkable except as noted in HPI and below Physical Exam Vital Signs: Last Vital Signs Pulse 70 12/07/23 14:20 BP 140/80 H 12/07/23 14:20 Pulse Ox 100 12/07/23 14:20 Oxygen Delivery Method Room Air 12/07/23 14:20 BMI result Body Mass Index 21.3 Const General: cooperative, healthy appearing, comfortable and no acute distress Orientation/consciousness: patient oriented x3 HEENT Head: Yes normal to inspection General nose exam: Normal external nose present Face and sinus: Yes normal facial exam Eyes General: appearance normal, both eyes and all related structures Neck Neck: Yes normal visual inspection Resp Effort & Inspection: normal respiratory effort and able to speak in complete sentences Neuro General: patient oriented x3 Extrem Left lower extremity: ankle Details: tenderness Location: of the lateral malleolus and of the anterior talofibular ligament, swelling Details: laterally and medially, pitting edema (Over anterior talofibular ligament) and normal ROM; no warmth, no abrasions, no lacerations, no ecchymosis and achilles tendon exam normal and foot Details: normal capillary refill, toes with normal ROM, no edema, vascular exam Details: normal capillary refill, tendon exam Details: active flexion normal and active extension normal and motor-sensory exam Details: light-touch normal; no tenderness, no unusual warmth, no abrasions, no lacerations and no ecchymosis Assessment & Plan Assessment & Plan (1) Left ankle sprain: Code(s): S93.402A - Sprain of unspecified ligament of left ankle, initial encounter Qualifiers: Encounter type: initial encounter Involved ligament of ankle: anterior talofibular ligament Qualified Code(s): S93.492A - Sprain of other ligament of left ankle, initial encounter Plan: As per [place] ankle rules, no indication for an x-ray, recommended patient continue to use her splint, ice and a leave and rest it and it should get better but it could take several weeks. Plan See above Medications: Discontinued metoclopramide HCl Discontinued Reason: Patient Completed Course 5 mg PO Q8H 10 tabs 0RF Nausea Coding Level of Care Code Est Pt Level 3 (37725) Diagnoses Sprain of anterior talofibular ligament of left ankle, initial encounter S93.492A Encounter type: initial encounter Involved ligament of ankle: anterior talofibular ligament
[2023-12-07 14:20] VITALS: BP 140/80; PULSE 70; O2SAT 100; BMI 21.3
== END 2023-12-07 14:55 | disposition home or self-care (01) ==
PROVIDERS: PCP Internal Medicine; Visit Provider Physician Assistant
DX: S93.492A Sprain of other ligament of left ankle, initial encounter (principal)

== ENCOUNTER → 2023-12-07 13:59 | Outpatient (BNVA) | payer MEDICARE, SELFPAY | PROVIDERS: PCP Internal Medicine | DX: S93.492A Sprain of other ligament of left ankle, initial encounter (principal) | CPT/HCPCS: 99212 ==

== ENCOUNTER 2025-01-10 15:58 | Outpatient (REF) | payer MEDICARE, SELFPAY ==
--- OUTSIDE RECORDS SUMMARY | 2025-01-10 16:47 | XMS_ITS | Clinical Summary ---
Author Organization [facility] Address [address] [place] [phone] Phone Care Team Providers Care Instrumentation Technician Name Role Phone Yeyo Parmar MD Primary Care Provider [phone] Yeyo Parmar MD Unavailable [phone] Allergies Active Allergy Reactions Criticality Noted Date Comments Codeine Nausea and/or Vomiting 06/27/2017 Medications ibuprofen (ADVIL,MOTRIN) 200 MG tablet Take 400 mg by mouth 3 (three) times a week. At bedtime Active estradioL-levono rgestreL (CLIMARA PRO) 0.045-0.015 mg/24 hrIndications:Po stmenopausal estrogen deficiency Place 1 patch onto the skin once a week. 12 patch 3 09/26/19 24 Active Additional Information Patient taking differently: 0.5 patchTransdermal Weekly, Reported on 12/30/2024 multivit-min/iro n/FA/vit K/lut (MULTIVITAMIN WOMEN 50 PLUS ORAL) Take 1 capsule by mouth daily. Active lisinopril (PRINIVIL,ZESTRI L) 20 MG tabletIndication s:Essential hypertension Take 1 tablet (20 mg total) by mouth every evening. 90 tablet 3 03/12/19 25 Active amLODIPine (NORVASC) 2.5 MG tabletIndication s:Benign essential hypertension Take 1 tablet (2.5 mg total) by mouth daily. 100 tablet 3 04/24/19 25 Active omeprazole (PRILOSEC) 20 MG capsuleIndicatio ns:Gastroesophag eal reflux disease TAKE 1 CAPSULE BY MOUTH EVERY DAY 90 capsule 3 06/25/19 25 Active Active Problems Problem Noted Date Diagnosed Date Abnormal finding on breast imaging 11/30/2023 Overview (11/30/2023): Had right dx Mammo birad 3, 11/07/23- advised f/u in 6m with her annual screening- pt notified- Chronic obstructive pulmonar y disease, unspecified COPD type 09/26/2023 Cataract of both eyes 02/02/2021 Assessment & Plan (02/02/2021 9:05 AM EST): Patient assessed for cardiovascular risk in regards to this relatively risk low surgery. Blood pressure very well controlled with the lisinopril, patient's weight within normal range, cholesterol mildly elevated, non-smoker, nondiabetic. Overall patient's risk is low, no further cardiac testing required, we can forego EKG and lab testing. Patient may proceed to the surgery without any further testing, she can come off of the aspirin 7 days in advance. Menopausal hot flushes 02/02/2021 Assessment & Plan (02/02/2021 9:06 AM EST): Patient continues on the HRT to manage her postmenopausal symptoms of hot flashes. She will continue with the HRT which does not appear to be much of a risk given the lack of risk factors otherwise. Essential hypertension 06/27/2017 Assessment & Plan (02/02/2021 9:03 AM EST): Hypertension well controlled with current listed antihypertensives. Denies side effects No change to dosing. Low Sodium diet reinforced. Continue to monitor condition. Gastroesophageal reflux disease 06/27/2017 Hyperlipidemia 06/27/2017 Assessment & Plan (02/02/2021 9:04 AM EST): Dyslipidemia mild, patient can come off of the aspirin prior to the surgery 7 days before hand. No need for statin therapy and the cardiovascular risk factor is not enough to warrant further cardiac testing prior to the surgery. Osteopenia 06/27/2017 Vitamin D deficiency 06/27/2017 Encounters Date Type Department Care Team Description 01/06/2025 Lab Requisition [facility] Lab Main [address] [place] [address] Yeyo Parmar MD Diarrhea, unspecified 12/30/2024 11:59 PM EDT Hospital Encounter [facility] [address] [place] [address] Discharge Disposition: Home or Self Care 12/30/2024 11:00 AM EDT Office Visit [facility] Internal Medicine [address] [facility] [place] [address] Yeyo Parmar MD Need for prophylactic vaccination and inoculation against influenza (Primary Dx); Diarrhea, unspecified type; Adenomatous polyp of colon, unspecified part of colon; Benign essential hypertension; Palpitations; Impaired fasting glucose; Chronic obstructive pulmonary disease, unspecified COPD type 12/30/2024 Orders Only [facility] Internal Medicine [address] [place] [address] ProviderManav MD 12/27/2024 Documentation [facility] Internal Medicine [address] [facility] [place] [address] Yeyo Parmar MD 12/27/2024 Telephone [facility] Internal [facility] [address] [facility] [place] [address] Yeyo Parmar MD Medication Question from Last 3 Months Immunizations Immunization Administration Dates Next Due COVID-19 (Pre-12/26) Pfizer Vaccine, Bivalent + 06/26/2022 COVID-19 (Pre-12/26) Pfizer Vaccine, mRNA, PF 06/01/2020,05/11/2020 COVID-19 Pfizer Comirnaty Vaccine + 11/27/2022 Influenza High-Dose Trivalen t Preservative Free IM 12/29/2023,01/25/2021 Influenza Quadrivalent Adjuv anted Preservative Free IM 02/25/2023,12/29/2021,01/19/2020 Influenza, Unspecified Formulation 01/19/2020 Pneumococcal conjugate PCV13 06/27/2017 Pneumococcal polysaccharide PPSV23 07/07/2020 Tdap 03/30/2024,12/17/2009 Zoster live 01/15/2012 Zoster recombinant 07/26/2021,04/15/2021 Family History Medical History Relation Comments Pancreatic cancer Brother Colon cancer Maternal Grandfather Relation Status Comments Brother Maternal Grandfather Social History Tobacco Use Types Packs/Day Years Used Date Smoking Tobacco: Former Cigarettes 1 19.2 1 971 - 05/04/1989 Passive Smoke Exposure: Past Smokeless Tobacco: Never Tobacco Cessation:Counseling Given: Not Answered Comments:quit 30 years ago Passive Exposure Comments:father smoked a pipe with tobacco in the house and car Alcohol Use Standard Drinks/Week Comments Yes 14 (1 standard drink = 0.6 oz pure alcohol) 2 drinks a day wine or Martini Education Answer Date Recorded Are you interested in more education? Not on rafael e 06/30/2022 Are you concerned about learning? Not on file 06/30/2022 No 06/30/2022 No 06/30/2022 Digital Access Answer Date Recorded No 08/01/2022 No 08/01/2022 Reliable internet access at home? Not on file 08/01/2022 Device with a working camera? Not on file Intimate Partner Violence Answer Date R ecorded Denied Basic Needs Not on file 12/24/2024 In the past 12 months have y ou been in a relationship with a person who hurts, threatens, or tries to control you? No 12/24/2024 Worried food would run out Not on file 12/24 In the past 12 months have y ou been in a relationship with a person who hurts, threatens, or tries to control you? No 12/24/2024 Comments No Sex and Gender Information Value Date Recorded Sex Assigned at Female 08/05/2020 11:14 PM EDT Legal Sex Female 10:01 PM EDT Gender Identity Female 08/05/2020 11:14 PM EDT Sexual Orientation Not on file Last Filed Vital Signs Vital Sign Reading Time Taken Comments Blood Pressure 117/62 12/30/2024 10:58 AM EDT Pulse 71 12/30/2024 10:58 AM EDT Temperature 36.4 C (97.6 F) 12/30/2024 10:58 AM EDT Respiratory Rate 14 06/10/2024 10:34 AM EDT Oxygen Saturation 99% 12/30/2024 10:58 AM EDT Inhaled Oxygen Concentration - - Weight 48.6 kg (107 lb 3.2 oz) 12/30/2024 10:58 AM EDT Height 154.3 cm (5' 0.75 ) 12/30/2024 10:58 AM E DT Body Mass Index 20.42 12/30/2024 10:58 AM EDT Plan of Treatment Upcoming Encounters Date Type Department Care Team (Late st Contact Info) Description 06/16/2025 11:00 AM EDT Office Visit [facility] Internal Medicine [address] [place] [address] Yeyo Parmar MD [address] [place] [address] [email or web address] Health Maintenance Due Date Last Done Comments HEPATITIS C SCREENING 1968 COLOGUARD 05/17/1995 FIT TEST 05/17/1995 FOBT 05/17/1995 SIGMOIDOSCOPY 05/17/1995 VIRTUAL COLONOSCOPY 05/17/1995 RSV VACCINE (1 - Risk 50-74 years 1-dose series) 2000 COLONOSCOPY 05/03/2024 05/03/2019, 04/07, 08/29/2013 COLORECTAL CANCER SCREENING 05/03/2024 INFLUENZA VACCINE (#1) 2024 , 02/25/2023, 02/25/2023, Additional history exists COVID-19 VACCINE ( season) 2024 12/04/2023, 11/27/2022, 06/26/2022, Additional history exists BLOOD PRESSURE 06/30/2025 12/30/2024 DEPRESSION SCREENING 12/24/2025 12/24/2024 CREATININE LEVEL 12/30/2025 12/30/2024, , 03/29/2024, Additional history exists POTASSIUM LEVEL 12/30/2025 12/30/2024, 05/04, 03/29/2024, Additional history exists MAMMOGRAM 12/30/2026 12/30/2024, 12/05, 06/17/2024, Additional history exists LIPID PANEL 05/20/2029 05/20/2024, 03/07, 07/07/2020, Additional history exists Adult Td,Tdap Booster 03/30/2034 03/30/2024, 010 PNEUMOCOCCAL VACCINES (50+ years) Completed 07/07/2020, 06/27/2017 ZOSTER VACCINES Completed 07/26/2021, 04/06, 01/15/2012 OSTEOPOROSIS SCREENING INITIAL (ONE-TIME) Completed 04/26/2023, 08/17/2020, 12/16/2016 SMOKING STATUS SCREENING (Once After 26 Yrs) Completed 12/30/2024 HEPATITIS A VACCINES Aged Out No long er eligible based on patient's age to complete this topic HIB VACCINES Aged Out No longer eligi ble based on patient's age to complete this topic MENINGOCOCCAL VACCINES (ACWY) Aged Out No longer eligible based on patient's age to complete this topic MENINGOCOCCAL VACCINES (B) Aged Out N o longer eligible based on patient's age to complete this topic Medical Devices Not on file Procedures Procedure Name Priority Date/Time Associated Diagnosis Comments STOOL CULTURE Routine 01/05/2025 11:30 AM EST Diarrhea, unspecified type OUTSIDE IMAGING Routine 12/30/2024 3:21 PM EDT OUTSIDE IMAGING Routine 12/30/2024 1:17 PM EDT HM MAMMOGRAPHY Routine 12/30/2024 1:15 PM EDT HM MAMMOGRAPHY Routine 12/30/2024 12:55 PM EDT COMPREHENSIVE METABOLIC PANEL (CMP) Routine 12/30/2024 11:55 AM EDT Diarrhea, unspecified type Benign essential hypertension Palpitations CBC AND DIFFERENTIAL Routine 12/30/2024 11:55 AM EDT Diarrhea, unspecified type Benign essential hypertension MAGNESIUM Routine 12/30/2024 11:55 AM EDT Diarrhea, unspecified type Benign essential hypertension Palpitations TSH WITH REFLEX Routine 12/30/2024 11:55 AM EDT Diarrhea, unspecified type Benign essential hypertension HEMOGLOBIN A1C Routine 12/30/2024 11:55 AM EDT Impaired fasting glucose LIPID PANEL Routine 05/20/2024 11:20 AM EDT Essential hypertension BD DXA AXIAL (SPINE) WITH HIP Routine 04/26/2023 2:02 PM EST Postmenopausal estrogen deficiency HM COLONOSCOPY FOR RESULT ENTRY ONLY Routine 05/03/2019 from Last 3 Months or Most Recently Relevant to Health Maintenance Results * Stool Culture (01/05/2025 11:30 AM EST) Stool Culture/Test No Salmonella, Shigella, Aeromonas, Plesiomonas, or Campylobacter isolated 01/08/2025 8:36 AM EST [facility] Stool (Stool) 01/05/2025 11: 30 AM EST 01/05/2025 2:04 PM EST Result [facility] Yeyo Parmar MD LAB [facility]BIOLOGY [facility] Final Result [address] [address] * Outside Imaging Report Only (12/30/2024 3:21 PM EDT) Historical Provider IMG XR CHEST Final Res ult * Outside Imaging Report Only (12/30/2024 1:17 PM EDT) Historical Provider IMG XR CHEST Final Res ult * HM MAMMOGRAPHY FOR RESULT ENTRY ONLY (12/30/2024 1:15 PM EDT) Historical Provider HEALTH MAINTENANCE Final Result * HM MAMMOGRAPHY FOR RESULT ENTRY ONLY (12/30/2024 12:55 PM EDT) Historical Provider HEALTH MAINTENANCE Final Result * (ABNORMAL) Comprehensive metabolic panel (12/30/2024 11:55 AM EDT) SODIUM 131(L) 133 - 146 mmol/L [facility] POTASSIUM 3.8 3.3 - 5.1 mmol/L [facility] CHLORIDE 93(L) 96 - 108 mmol/L [facility] CO2 22 21 - 35 mmol/L [facility] BUN 7 6 - 19 mg/dL [facility] CREATININE 0.50 0.5 - 1.5 mg/dL [facility] GLUCOSE 94 70 - 99 mg/dL [facility] ALBUMIN 4.7 3.9 - 4.8 g/dL [facility] TOTAL PROTEIN 7.4 6.5 - 8.0 g/dL [facility] CALCIUM 9.3 8.4 - 10.3 mg/dL [facility] ALKALINE PHOSPHATASE 55 39 - 117 U/L [facility] TOTAL BILIRUBIN 0.6 0.0 - 1.2 mg/dL [facility] AST 35 0 - 37 U/L [facility] ALT 22 0 - 40 U/L [facility] GLOBULIN 2.7 1 - 4.8 g/dL [facility] EGFR 98 >59 mL/min/1.7 3m2 [facility] Comment:Estimated glomerular filtration rate calculated using the CKD-EPI refit equation. ANION GAP 20 10 - 20 mmol/L [facility] Blood 12/30/2024 11:5 5 AM EDT 12/30/2024 12:05 PM EDT us Yeyo Parmar MD LAB BLOOD BKR ORDERABLES Betsy l Result [address] [address] * TSH with reflex (12/30/2024 11:55 AM EDT) TSH 0.69 0.27 - 4.20 uIU/mL [facility] Blood 12/30/2024 11:5 5 AM EDT 12/30/2024 12:05 PM EDT Yeyo Parmar MD LAB BLOOD BKR ORDERABLES Betsy l Result [facility] [address] [place] [address] * (ABNORMAL) CBC and differential (12/30/2024 11:55 AM EDT) WBC 5.96 4.00 - 11.00 K/uL [facility] RBC 4.12 4.00 - 5.20 M/uL [facility] HGB 13.7 12.0 - 16.0 g/dL [facility] HCT 39.3 36.0 - 46.0 % [facility] PLT 204 150 - 450 K/uL [facility] MCV 95.4 80.0 - 100.0 fL [facility] MCH 33.3(H) 27.0 - 31.0 pg [facility] MCHC 34.9 32.0 - 36.0 g/dL [facility] RDW 12.2 11.5 - 14.5 % [facility] MPV 11.4 8.4 - 12.0 fL [facility] NRBC 0.00 0.00 /100 WBCs [facility] ABSOLUTE NRBC 0.00 0.00 K/uL [facility] DIFF METHOD Auto [facility] NEUTS 56.4 48.0 - 76.0 % [facility] LYMPHS 27.5 18.0 - 41.0 % [facility] MONOS 14.4(H) 4.0 - 11.0 % [facility] EOS 0.7 0.0 - 5.0 % [facility] BASOS 0.8 0.0 - 1.5 % [facility] Granulocytes, immature (%) 0.2 0.0 - 0.9 % [facility] ABSOLUTE NEUTS 3.36 1.92 - 7.60 K/uL [facility] ABSOLUTE LYMPHS 1.64 0.72 - 4.10 K/uL [facility] ABSOLUTE MONOS 0.86 0.16 - 1.10 K/uL [facility] ABSOLUTE EOS 0.04 0.00 - 0.50 K/uL [facility] ABSOLUTE BASOS 0.05 0.00 - 0.15 K/uL [facility] Granulocytes, immature 0.01 0.00 - 0.09 K/uL [facility] Blood 12/30/2024 11:5 5 AM EDT 12/30/2024 12:05 PM EDT us Yeyo Parmar MD LAB BLOOD BKR ORDERABLES Betsy l Result [address] [address] * Magnesium (12/30/2024 11:55 AM EDT) MAGNESIUM 1.6 1.6 - 2.6 mg/dL [facility] Blood 12/30/2024 11:5 5 AM EDT 12/30/2024 12:05 PM EDT us Yeyo Parmar MD LAB BLOOD BKR ORDERABLES Betsy l Result Performing Organization Address [facility]/ZIP Co de Phone Number [address] [address] * Hemoglobin A1c (12/30/2024 11:55 AM EDT) HEMOGLOBIN A1C 4.9 4.3 - 5.8 % [facility] Blood 12/30/2024 11:5 5 AM EDT 12/30/2024 12:05 PM EDT Yeyo Parmar MD LAB BLOOD BKR ORDERABLES Betsy l Result Performing Organization Address [facility]/ZIP Co de Phone Number [address] [address] * (ABNORMAL) Lipid panel (05/20/2024 11:20 AM EDT) HDL 76 mg/dL [facility] Comment: Interpretation <40 mg/dL: Low HDL cholesterol (major risk factor for CHD) Greater than or equal to 60 mg/dL: High HDL cholesterol ( negative risk factor for CHD) HDL - cholesterol is affected by a number of factors, e.g. smoking, excerise, hormones, sex and age. CHOLESTEROL 203 0 - 240 mg/dL [facility] TRIGLYCERIDES 63 30 - 160 mg/dL [facility] LDL 114 50 - 129 mg/dL [facility] Comment: LDL levels in terms of risk for coronary heart disease: <100 mg/dL: Optimal 100-129 mg/dL: Near or above optimal 130-159 mg/dL: Borderline high 160-189 mg/dL: High >190 mg/dL: Very High CARDIAC RISK RATIO 2.7(L) 3.3 - 4.4 C [facility] Blood 05/20/2024 11:2 0 AM EDT 05/20/2024 11:23 AM EDT us Yeyo Parmar MD LAB BLOOD BKR ORDERABLES Betsy garibay Result Performing Organization Address City/State/[facility] Co de Phone Number [facility] [address] [place] [address] * BD DXA AXIAL (SPINE) WITH HIP (04/26/2023 2:02 PM EST) Anatomical Region Laterality Modality Bone Density Bone Density 04/26/2023 3:01 PM EST Impressions 04/26/2023 7:08 PM EST Osteopenia based upon bone mineral density in the right total hip. There was a decrease in bone mineral density of 0.6% in the lumbar spine and 6% in the right total hip relative to the previous study. ATTESTATION: I, Vincenzo Cobb as teaching physician, have reviewed the images for this case and if necessary edited the report originally created by Cristino Samuel. Narrative 04/26/2023 7:08 PM EST BD DXA AXIAL (SPINE) WITH HIP INDICATION: Postmenopausal estrogen deficiency. Follow up osteopenia. COMPARISON: Previous study 08/17/2020 and baseline study 12/26/2000 Evaluation of the lumbar spine and right hip are obtained and appears technically adequate. The lumbar spine from L1 through L2 discloses a total bone mineral density of 0.866 g/cm2 T-score: -1.0 Z-Score: 1.1 WHO Classification: Normal Change from previous study: -0.6% Change from baseline study: 14.7% The right hip (total) has a total bone mineral density of 0.700 g/cm2 T-score: -2.0 Z-Score: -0.3 WHO Classification: Osteopenia Change from previous study: -6.0% Change from baseline study: -0.8% The right hip (neck) has a total bone mineral density of 0.623 g/cm2 T-score: -2.0 Z-Score: -0.1 FRAX:10-Year Fracture Risk Major Osteoporotic Fracture: 11% Hip Fracture: 2.7% Procedure Note Vincenzo Cobb MD - 04/26/2023 BD DXA AXIAL (SPINE) WITH HIP INDICATION: Postmenopausal estrogen deficiency. Follow up osteopenia. COMPARISON: Previous study 08/17/2020 and baseline study 12/26/2000 Evaluation of the lumbar spine and right hip are obtained and appearstechnically adequate. The lumbar spine from L1 through L2 discloses a total bone mineral densityof 0.866 g/cm2 T-score: -1.0 Z-Score: 1.1 WHO Classification: Normal Change from previous study: -0.6% Change from baseline study: 14.7% The right hip (total) has a total bone mineral density of 0.700 g/cm2 T-score: -2.0 Z-Score: -0.3 WHO Classification: Osteopenia Change from previous study: -6.0% Change from baseline study: -0.8% The right hip (neck) has a total bone mineral density of 0.623 g/cm2 T-score: -2.0 Z-Score: -0.1 FRAX:10-Year Fracture Risk Major Osteoporotic Fracture: 11% Hip Fracture: 2.7% IMPRESSION: Osteopenia based upon bone mineral density in the right total hip. Therewas a decrease in bone mineral density of 0.6% in the lumbar spine and 6%in the right total hip relative to the previous study. ATTESTATION: I, Vincenzo Cobb as teaching physician, have reviewed theimages for this case and if necessary edited the report originally createdby Cristino Samuel. us Yeyo Parmar MD IMG BD BONE DENSITY DEXA Betsy l Result * HM COLONOSCOPY FOR RESULT ENTRY ONLY (05/03/2019) Historical Provider HEALTH MAINTENANCE Final Result from Last 3 Months or Most Recently Relevant to Health Maintenance Additional Health Concerns Infection Onset Date Last Indicated CDiff-Risk 01/07/2025 01/07/2025 Insurance MEDICARE PART A & B [employer] MEDEX SUPPLEMENT MEDICARE PART A & B [employer] MEDEX SUPPLEMENT MEDICARE PART A & B [employer] MEDEX SUPPLEMENT MEDICARE PART A & B [employer] MEDEX SUPPLEMENT MEDICARE PART A & B [employer] MEDEX SUPPLEMENT MEDICARE PART A & B [employer] MEDEX SUPPLEMENT MEDICARE PART A & B [employer] MEDEX SUPPLEMENT MEDICARE PART A & B [employer] SUPPLEMENT MEDICARE PART A & B [employer] MEDEX SUPPLEMENT Care Teams Instrumentation Technician Relationship Specialty Start Date End Date Yeyo Parmar MD [address] [place] [address] [email or web address] PCP - General Internal Medicine 04/09/20 Yeyo Parmar MD [address] [place] [address] Insurance Assigned Provider 06/10/23 Additional Source Comments The information contained in this document represents components of the legal health record. It is not the complete legal health record.[facility]
--- OUTSIDE RECORDS SUMMARY | 2025-01-10 16:47 | XMS_ITS | Encounter Summary ---
Author Organization [facility] Address [address] [employer] [address] [place] [address] Phone Care Team Providers Care Hospital Receiving Clerk Name Role Phone Yeyo Parmar MD Primary Care Provider [phone] Yeyo Parmar MD Unavailable [phone] Encounter Details Date Type Department Care Team (Late st Contact Info) Description 12/30/2024 Orders Only [facility] Internal Medicine [address] [facility] [place] [address] Provider, MD Manav [address] [place], [place] [id number] Social History Tobacco Use Types Packs/Day Years Used Date Smoking Tobacco: Former Cigarettes 1 19.2 1 971 - 05/04/1989 Passive Smoke Exposure: Past Smokeless Tobacco: Never Comments:quit 30 years ago Passive Exposure Comments:father [...] PM EDT Sexual Orientation Not on file documented as of this encounter Plan of Treatment Upcoming Encounters Date Type Department Care Team (Late st Contact Info) Description 06/16/2025 11:00 AM EDT Office Visit [facility] Internal Medicine [address] [place] [address] Yeyo Parmar MD [address] [place] [address] [email or web address] documented as of this encounter Procedures Procedure Name Priority Date/Time Associated Diagnosis Comments OUTSIDE IMAGING Routine 12/30/2024 3:21 PM EDT OUTSIDE IMAGING Routine 12/30/2024 1:17 PM EDT HM MAMMOGRAPHY Routine 12/30/2024 1:15 PM EDT HM MAMMOGRAPHY Routine 12/30/2024 12:55 PM EDT documented in this encounter Results * Outside Imaging Report Only (12/30/2024 3:21 PM EDT) us Historical Provider IMG XR CHEST Final Res ult * Outside Imaging Report Only (12/30/2024 1:17 PM EDT) Historical Provider MD GONZALEZ XR CHEST Final Res ult * MAMMOGRAPHY FOR RESULT ENTRY ONLY (12/30/2024 1:15 PM EDT) Historical Provider HEALTH MAINTENANCE Final Result * HM MAMMOGRAPHY FOR RESULT ENTRY ONLY (12/30/2024 12:55 PM EDT) us Historical Provider HEALTH MAINTENANCE Final Result documented in this encounter Visit Diagnoses Not on filedocumented in this encounter Additional Health Concerns Infection Onset Date Last Indicated Resolved Time CDiff-Risk 12/30/2024 12/30/2024 01/06/2025 7:08 PM EST CDiff-Risk 01/07/2025 01/07/2025 Assessment Noted Time PHQ-2 Depression Total Score: 0 12/25/19 4:25 PM EDT documented as of this encounter Care Teams Hospital Receiving Clerk Relationship Specialty Start Date End Date Yeyo Parmar MD [address] [place] [address] PCP - General Internal Medicine 04/09/20 Yeyo Parmar MD [address] [place] [address] Insurance Assigned Provider 06/10/23 documented as of this encounter Additional Source Comments The information contained in this document represents components of the legal health record. It is not the complete legal health record.[facility]
--- OUTSIDE RECORDS SUMMARY | 2025-01-10 16:47 | XMS_ITS | Encounter Summary ---
Author Organization [facility] Address [address] [place] [address] Phone Care Team Providers Care Bilingual Operator Name Role Phone Yeyo Parmar MD Primary Care Provider [phone] Yeyo Parmar MD Unavailable [phone] Encounter Details Date Type Department Care Team (Late st Contact Info) Description 01/06/2025 Lab Requisition [facility] Lab Main [address] [place] [address] Yeyo Parmar MD [address] [place] [address] [email or web address] Diarrhea, unspecified Social History Tobacco Use Types Packs/Day Years [...] Description 06/16/2025 11:00 AM EDT Office Visit [facility] Internal Medicine [address] [place] [address] Yeyo Parmar MD [address] [place] [address] [email or web address] [email or web address] Results Name Type Priority Associated Diagnoses Date /Time Parasite Identification (Ova and Parasites), Travel History or Immunocompromised Stool Lab Today Diarrhea, unspecified 01/05/2025 2:00 PM EST documented as of this encounter Visit Diagnoses Diagnosis Diarrhea, unspecified documented in this encounter Additional Health Concerns Infection Onset Date Last Indicated Resolved Time CDiff-Risk 12/30/2024 12/30/2024 01/06/2025 7:08 PM EST CDiff-Risk 01/07/2025 01/07/2025 Assessment Noted Time PHQ-2 Depression Total Score: 0 12/25/19 25 4:25 PM EDT documented as of this encounter Care Teams Bilingual Operator Relationship Specialty Start Date End Date Yeyo Parmar MD [address] [place] [address] [email or web address] PCP - General Internal Medicine 04/09/20 Yeyo Parmar MD [address] [place] [address] [email or web address] Insurance Assigned Provider 06/10/23 documented as of this encounter Additional Source Comments The information contained in this document represents components of the legal health record. It is not the complete legal health record.[facility]
--- OUTSIDE RECORDS SUMMARY | 2025-01-10 16:47 | XMS_ITS | Clinical Summary ---
Author Organization [facility] Address [address] [place] [address] Phone Care Team Providers Care Ssas Developer Name Role Phone Yeyo Parmar MD Primary Care Provider [phone] Social History Tobacco Use Types Packs/Day Years Used Date Smoking Tobacco: Never Assessed Comments No Sex and Gender Information Value Date Recorded Sex Assigned at Not on file Legal Sex Female 10:28 PM EST Gender Identity Not on file Sexual Orientation Not on file Obstetrics History Para Term AB IAB SAB Ectopic Multiple Livin g Live Births 0 Last Filed Vital Signs Vital Sign Reading Time Taken Comments Blood Pressure - - Pulse - - Temperature - - Respiratory Rate - - Oxygen Saturation - - Inhaled Oxygen Concentration - - Weight 50.8 kg (112 lb) 06/17/2024 12:53 PM EDT Height 157.5 cm (5' 2 ) 06/17/2024 12:53 PM EDT Body Mass Index 20.49 06/17/2024 12:53 PM EDT Plan of Treatment Upcoming Encounters Date Type Department Care Team (Late st Contact Info) Description 06/17/2025 1:00 PM EDT [facility]ointment [facility] [address] [phone] 06/17/2025 2:00 PM EDT Appointment [facility] Ultrasound [address] [place] [phone] Health Maintenance Due Date Last Done Comments Colorectal Cancer Screening: Colonoscopy 1950 RSV Immunization Adult Patients (1 - Risk 50-74 years 1-dose series) 2000 Falls Risk Assessment 02/06/2022 Hepatitis C Screening 02/06/2022 Medicare Annual Wellness Visit 02/06/2022 Social Influencers of Health Screening 02/06/2022 Depression Screening 03/06/2024 COVID-19 Vaccine ( season) 2024 12/04/2023, 11/27/2022, 06/26/2022, Additional history exists Influenza Vaccine (#1) 2024 , 02/25/2023, 12/29/2021, Additional history exists Hypertension/CHF/CAD Annual BMP Blood Test 05/20/2025 05/20/2024, 03/29/2024, 08/31/2022, Additional history exists Breast Cancer Screening 06/17/2026 06/18/19, 05/03/2023, 04/26/2022, Additional history exists Cholesterol Screening (Lipid Panel) 05/20/2029 05/20/2024, 03/29/2024 Osteoporosis Screening (Bone Density Screening) 04/26/2033 04/26/2023 DTaP,Tdap,and Td Vaccines (3 - Td or Tdap) 03/30/2034 03/30/2024, 12/17/2009 Pneumococcal Vaccine: 50+ Years Completed 07/07/2020, 06/27/2017 Zoster Vaccines Completed 07/26/2021, 04/06, 01/15/2012 HIB Vaccines Aged Out No longer eligi ble based on patient's age to complete this topic HPV Vaccines Aged Out No longer eligi ble based on patient's age to complete this topic Hepatitis A Vaccines Aged Out No long er eligible based on patient's age to complete this topic Hepatitis B Vaccines Aged Out No long er eligible based on patient's age to complete this topic IPV Vaccines Aged Out No longer eligi ble based on patient's age to complete this topic MMR Vaccines Aged Out No longer eligi ble based on patient's age to complete this topic Meningococcal ACWY Vaccine Aged Out N o longer eligible based on patient's age to complete this topic Meningococcal B Vaccine Aged Out No l onger eligible based on patient's age to complete this topic RSV Immunization Patients Under 20 months Aged Out No longer eligible based on patient's age to complete this topic Varicella Vaccines Aged Out No longer eligible based on patient's age to complete this topic Procedures Procedure Name Priority Date/Time Associated Diagnosis Comments MG MAMMO DIGITAL DIAGNOSTIC W MARCELLUS BILAT Routine 06/17/2024 1:42 PM EDT Breast asymmetry from Last 3 Months or Most Recently Relevant to Health Maintenance Results * MG Mammo Digital Diagnostic w Marcellus bilat (06/17/2024 1:42 PM EDT) Anatomical Region Laterality Modality Breast Bilateral Mammography 06/17/2024 1:47 PM EDT Impressions 06/17/2024 1:53 PM EDT No mammographic evidence of malignancy. Stable probably benign oval mass by ultrasound. Recommend documenting stability for 24 months. Recommend diagnostic mammography in 12 months Recommend targeted right breast ultrasound in 12 months ASSESSMENT: BI-RADS 3: PROBABLY BENIGN RECOMMENDATION(S): 1: Follow-up diagnostic mammogram BILATERAL in 1 year. Recommend diagnostic right breast ultrasound with attention to the 9 o'clock position 9 cm from the right nipple in one year [facility] [address], [address] -------- FINAL REPORT -------- Dictated By: Noah Brothers Dictated Date: 06/17/2024 13:47 ET Assigned Physician: Noah Brothers Reviewed and Electronically Signed By: Noah Brothers Signed Date: 06/17/2024 13:53 ET Workstation ID: [id number] Transcribed By: Self Edit Transcribed Date: 06/17/2024 13:47 ET Narrative 06/17/2024 1:53 PM EDT EXAM: DIAGNOSTIC MAMMOGRAPHY, BILATERAL ULTRASOUND: DIAGNOSTIC ULTRASOUND, UNILATERAL RIGHT HISTORY: Short interval follow-up. Probably benign right breast mass. COMPARISON: 11/07/23, 05/05/23, 05/03/23, fibroid 2022, 04/20/21, 04/08/20 TECHNIQUE: Synthesized CC and MLO projections of each breast. Tomosynthesis of each breast in the CC and MLO projections. ADDITIONAL IMAGING: Craniocaudal view of the right breast using Tomosynthesis exaggerated toward the axilla High-frequency linear transducer ultrasound of the right breast targeted to the area of clinical concern. Computer-aided detection was employed with the [email or web address] AI 3-D. TISSUE DENSITY: The breasts are heterogeneously dense, which may obscure small masses. (BI-RADS category C) FINDINGS: MAMMOGRAPHY: RIGHT BREAST: No suspicious mass. No suspicious calcification. No distortion. The small mass in the outer right breast demonstrated previously is either no longer present or not included. LEFT BREAST: No suspicious mass. No suspicious calcification. No distortion. ULTRASOUND: RIGHT BREAST 9 o'clock position, 9 cm from right nipple There is a circumscribed homogeneous hypoechoic oval mass with long axis parallel. There is mild posterior enhancement. There is no suspicious color signal. Some eccentric color signal could be related to the hilum of a lymph node. 06/17/24-0.5 cm 11/07/23-0.5 cm 05/05/23-0.6 cm This as probably benign features. Recommend documenting stability for 24 months. Procedure Note Noah Brothers MD - 06/17/2024 EXAM: DIAGNOSTIC MAMMOGRAPHY, BILATERAL ULTRASOUND: DIAGNOSTIC ULTRASOUND, UNILATERAL RIGHT HISTORY: Short interval follow-up. Probably benign right breast mass. COMPARISON: 11/07/23, 05/05/23, 05/03/23, fibroid 2022, 04/20/21, 04/08/20 TECHNIQUE: Synthesized CC and MLO projections of each breast.Tomosynthesis of each breast in the CC and MLO projections. ADDITIONAL IMAGING: Craniocaudal view of the right breast usingTomosynthesis exaggerated toward the axilla High-frequency linear transducer ultrasound of the right breast targetedto the area of clinical concern. Computer-aided detection was employed with the [email or web address] AI 3-D. TISSUE DENSITY: The breasts are heterogeneously dense, which may obscuresmall masses. (BI-RADS category C) FINDINGS: MAMMOGRAPHY: RIGHT BREAST: No suspicious mass. No suspicious calcification. No distortion. Thesmall mass in the outer right breast demonstrated previously is either nolonger present or not included. LEFT BREAST: No suspicious mass. No suspicious calcification. No distortion. ULTRASOUND: RIGHT BREAST 9 o'clock position, 9 cm from right nipple There is a circumscribed homogeneous hypoechoic oval mass with long axisparallel. There is mild posterior enhancement. There is no suspiciouscolor signal. Some eccentric color signal could be related to the hilumof a lymph node. 06/17/24-0.5 cm 11/07/23-0.5 cm 05/05/23-0.6 cm This as probably benign features. Recommend documenting stability for 24 months. IMPRESSION: No mammographic evidence of malignancy. Stable probably benign oval mass by ultrasound. Recommend documenting stability for 24 months. Recommend diagnostic mammography in 12 months Recommend targeted right breast ultrasound in 12 months ASSESSMENT: BI-RADS 3: PROBABLY BENIGN RECOMMENDATION(S): 1: Follow-up diagnostic mammogram BILATERAL in 1 year. Recommend diagnostic right breast ultrasound with attention to the 9o'clock position 9 cm from the right nipple in one year [facility] [address], [address] -------- FINAL REPORT -------- Dictated By: Noah Brothers Dictated Date: 06/17/2024 13:47 ET Assigned Physician: Noah Brothers Reviewed and Electronically Signed By: Noah Brothers Signed Date: 06/17/2024 13:53 ET Workstation ID: [id number] Transcribed By: Self Edit Transcribed Date: 06/17/2024 13:47 ET Yeyo Parmar MD IMG BI PROCEDURES Final Result from Last 3 Months or Most Recently Relevant to Health Maintenance Insurance MEDICARE Member Subscriber Plan / Payer (Ef fective 2015-Present) Name:Daisha Clinton Member ID:[id number] Relation to Subscriber:Self Name:Daisha Clinton Subscriber ID:[id number] Payer ID:Not on file Group ID:Not on file Type:Medicare Address: [place] [id number] [facility] Care Teams Ssas Developer Relationship Specialty Start Date End Date Yeyo Parmar MD [address] [place] [phone] PCP - General Internal Medicine 06/17/24
[2025-01-10 17:33] LABS: Anion Gap 16 (12-20); Blood Urea Nitrogen 10 mg/dL (9-16); Calcium 9.5 mg/dL (8.4-10.2); Carbon Dioxide 22 mmol/L (22-29); Chloride 99 mmol/L (96-108); Estimated Glomerular Filt Rate > 60; Potassium 3.5 mmol/L (3.3-5.1); Sodium 133 mmol/L (135-145)
== END 2025-01-10 15:59 | disposition home or self-care (01) ==
LOC: HO.LAB 15:58
PROVIDERS: PCP Internal Medicine; Visit Provider Internal Medicine
DX: A09 Infectious gastroenteritis and colitis, unspecified (principal)
CPT/HCPCS: 36415; 80048

== ENCOUNTER 2025-01-13 12:19 | Outpatient (REF) | payer MEDICARE, SELFPAY ==
[2025-01-13 14:28] LABS: E. coli EAEC Not Detected (Not Detect.); E. coli EPEC Not Detected (Not Detect.); E. coli ETEC Not Detected (Not Detect.); E. coli STEC Not Detected (Not Detect.); Shigella sp./EIEC Not Detected (Not Detect.)
--- OUTSIDE RECORDS SUMMARY | 2025-01-13 14:36 | XMS_ITS | Encounter Summary ---
Author Organization [facility] Address [address] [place] [phone] Phone Care Team Providers Care Crown Assembly Machine Set Up Mechanic Name Role Phone Yeyo Parmar MD Primary Care Provider [phone] Yeyo Parmar MD Unavailable [phone] Encounter Details Date Type Department Care Team (Late st Contact Info) Description 01/06/2025 Lab Requisition [facility] Lab Main [address] [place] [address] Yeyo Parmar MD [address] [place] [address] [email or web address] Diarrhea, unspecified Social History Tobacco Use Types [...] Description 06/16/2025 11:00 AM EDT Office Visit [facility] Internal Medicine [address] [place] [address] Yeyo Parmar MD [address] [place] [address] [email or web address] Pending Results Name Type Priority Associated Diagnoses [...] documented as of this encounter Care Teams Crown Assembly Machine Set Up Mechanic Relationship Specialty Start Date End Date Yeyo Parmar MD [address] [place] [address] [email or web address] PCP - General Internal Medicine 04/09/20 Yeyo Parmar MD [address] [place] [address] [email or web address] Insurance Assigned Provider 06/10/23 documented as of this encounter Additional Source Comments The information contained in this document represents components of the legal health record. It is not the complete legal health record.[facility]
--- OUTSIDE RECORDS SUMMARY | 2025-01-13 14:36 | XMS_ITS | Clinical Summary ---
Author Organization [facility] Address [address] [place] [address] Phone Care Team Providers Care Garment Parts Cutter Machine Name Role Phone Yeyo Parmar MD Primary Care Provider [phone] Social History Tobacco Use Types Packs/Day Years [...] PM EDT [facility]ointment [facility] [address] [phone] 06/17/2025 2:00 PM EDT Appointment [facility] Ultrasound [address] [place] [phone] Health Maintenance Due Date Last Done [...] year [facility]ammography location[facility] [address], [address] -------- FINAL REPORT -------- Dictated By: Noah Brothers Dictated Date: 06/17/2024 13:47 ET Assigned Physician: Noah Brothers Reviewed and Electronically Signed By: Noah Brothers Signed Date: 06/17/2024 13:53 ET Workstation ID: [id number] Transcribed By: Self Edit Transcribed Date: 06/17/2024 [...] concern. Computer-aided detection was employed with the [employer] AI 3-D. TISSUE DENSITY: The breasts are [...] concern. Computer-aided detection was employed with the [employer] AI 3-D. TISSUE DENSITY: The breasts are [...] year [facility]amm[facility] [address], [address] -------- FINAL REPORT -------- Dictated By: Noah Brothers Dictated Date: 06/17/2024 13:47 ET Assigned Physician: Noah Brothers Reviewed and Electronically Signed By: Noah Brothers Signed Date: 06/17/2024 13:53 ET Workstation ID: [id number] Transcribed By: Self Edit Transcribed Date: 06/17/2024 13:47 ET Yeyo Parmar MD IMG BI PROCEDURES Final Result from Last 3 Months or Most Recently Relevant to Health Maintenance Insurance MEDICARE Member Subscriber Plan / Payer (Ef fective 2015-Present) Name:Daisha Clinton Member ID:[id number] Relation to Subscriber:Self Name:Daisha Clinton Subscriber ID:[id number] Payer ID:Not on file Group ID:Not on file Type:Medicare Address: [place] [id number] [facility] Care Teams Garment Parts Cutter Machine Relationship Specialty Start Date End Date Yeyo Parmar MD [address] [place] [phone] PCP - General Internal Medicine 06/17/24
--- OUTSIDE RECORDS SUMMARY | 2025-01-13 14:36 | XMS_ITS | Clinical Summary ---
Author Organization [facility] Address [address] [place] [address] Phone Care Team Providers Care Grader Tender Name Role Phone Yeyo Parmar MD Primary Care Provider [phone] Yeyo Parmar MD Unavailable [phone] Allergies Active Allergy Reactions Criticality Noted [...] Encounters Date Type Department Care Team Description 01/13/2025 Orders Only [facility] Internal Medicine [address] [facility] [place] [address] ProviderManav MD 01/06/2025 Lab Requisition [facility] Lab Main [address] [place] [address] Yeyo Parmar MD Diarrhea, unspecified 12/30/2024 11:59 PM EDT Hospital Encounter [facility] [address] [place] [address] Discharge Disposition: Home or Self Care 12/30/2024 11:00 AM EDT Office Visit [facility] Internal Medicine [address] [facility] [place] [address] Yeyo Parmar MD Need for prophylactic vaccination and inoculation against influenza (Primary Dx); Diarrhea, unspecified type; Adenomatous polyp of colon, unspecified part of colon; Benign essential hypertension; Palpitations; Impaired fasting glucose; Chronic obstructive pulmonary disease, unspecified COPD type 12/30/2024 Orders Only [facility] Internal Medicine [address] [place] [address] ProviderManav MD 12/27/2024 Documentation [facility] Internal Medicine [address] [facility] [place] [address] Yeyo Parmar MD 12/27/2024 Telephone [facility] Internal [facility] [address] [place] [address] Yeyo Parmar MD Medication Question from Last 3 Months Immunizations Immunization Administration Dates Next Due COVID-19 (Pre-12/26) Pfizer Vaccine, Bivalent 06/26/2022 COVID-19 (Pre-12/26) Pfizer Vaccine, mRNA, PF 06/01/2020,05/11/2020 COVID-19 Pfizer Comirnaty Vaccine 11/27/2022 Influenza High-Dose Trivalen t Preservative Free [...] Description 06/16/2025 11:00 AM EDT Office Visit [facility] Internal Medicine [address] [place] [address] Yeyo Parmar MD [address] [place] [address] [email or web address] Health Maintenance Due Date Last Done Comments [...] patient's age to complete this topic IPV VACCINES Aged Out No longer eligi ble based on patient's age to complete this topic MENINGOCOCCAL VACCINES (ACWY) Aged Out No longer eligible based on patient's age to complete this topic MENINGOCOCCAL VACCINES (B) Aged Out N o longer eligible based on patient's age to complete this topic Medical Devices Not on file Procedures Procedure Name Priority Date/Time Associated Diagnosis Comments OUTSIDE LAB Routine 01/10/2025 12:11 PM EST STOOL CULTURE Routine 01/05/2025 11:30 AM EST [...] Recently Relevant to Health Maintenance Results * Outside Lab (Non-MGB) (01/10/2025 12:11 PM EST) Historical Provider LAB BLOOD BKR ORDERABLES Final Result * Stool Culture (01/05/2025 11:30 AM EST) Stool Culture/Test No Salmonella, Shigella, Aeromonas, Plesiomonas, or Campylobacter isolated 01/08/2025 8:36 AM EST [facility] Stool (Stool) 01/05/2025 11: 30 AM EST 01/05/2025 2:04 PM EST Yeyo Parmar MD LAB MICROBIOLOGY CULTURE ORDJohn SOTO Final Result [address] [address] * Outside Imaging Report Only (12/30/2024 3:21 PM EDT) Historical Provider IMG XR CHEST Final Res ult * Outside Imaging Report Only (12/30/2024 1:17 PM EDT) Historical Provider IMPayton XR CHEST Final Res ult * HM MAMMOGRAPHY FOR RESULT ENTRY ONLY (12/30/2024 1:15 PM EDT) Historical Provider HEALTH MAINTENANCE Final Result * HM MAMMOGRAPHY FOR RESULT ENTRY ONLY (12/30/2024 12:55 PM EDT) Historical Provider HEALTH MAINTENANCE Final Result * (ABNORMAL) Comprehensive metabolic panel (12/30/2024 11:55 AM EDT) SODIUM 131(L) 133 - 146 mmol/L [facility] POTASSIUM 3.8 3.3 - 5.1 mmol/L [facility] CHLORIDE 93(L) 96 - 108 mmol/L [facility] CO2 22 21 - 35 mmol/L [facility] BUN 7 6 - 19 mg/dL [facility] CREATININE 0.50 0.5 - 1.5 mg/dL [facility] GLUCOSE 94 70 - 99 mg/dL [facility] ALBUMIN 4.7 3.9 - 4.8 g/dL [facility] TOTAL PROTEIN 7.4 6.5 - 8.0 g/dL [facility] CALCIUM 9.3 8.4 - 10.3 mg/dL [facility] ALKALINE PHOSPHATASE 55 39 - 117 U/L [facility] TOTAL BILIRUBIN 0.6 0.0 - 1.2 mg/dL [facility] AST 35 0 - 37 U/L [facility] ALT 22 0 - 40 U/L [facility] GLOBULIN 2.7 1 - 4.8 g/dL [facility] EGFR 98 >59 mL/min/1.7 3m2 [facility] Comment:Estimated glomerular filtration rate calculated using the CKD-EPI refit equation. ANION GAP 20 10 - 20 mmol/L [facility] Blood 12/30/2024 11:5 5 AM EDT 12/30/2024 12:05 PM EDT Yeyo Parmar MD LAB BLOOD BKR ORDERABLES Betsy l Result [facility] [address] [place] [address] * TSH with reflex (12/30/2024 11:55 AM EDT) TSH 0.69 0.27 - 4.20 uIU/mL [facility] Blood 12/30/2024 11:5 5 AM EDT 12/30/2024 12:05 PM EDT us Yeyo Parmar MD LAB BLOOD BKR ORDERABLES Betsy garibay Result [facility] [address] [place] [address] * (ABNORMAL) CBC and differential (12/30/2024 11:55 AM EDT) WBC 5.96 4.00 - 11.00 K/uL [facility] RBC 4.12 4.00 - 5.20 M/uL [facility] HGB 13.7 12.0 - 16.0 g/dL [facility] HCT 39.3 36.0 - 46.0 % [facility] PLT 204 150 - 450 K/uL [facility] MCV 95.4 80.0 - 100.0 fL [facility] MCH 33.3(H) 27.0 - 31.0 pg [facility] MCHC 34.9 32.0 - 36.0 g/dL [facility] RDW 12.2 11.5 - 14.5 % [facility] MPV 11.4 8.4 - 12.0 fL [facility] NRBC 0.00 0.00 /100 WBCs [facility] ABSOLUTE NRBC 0.00 0.00 K/uL [facility] DIFF [employer] Auto [facility] NEUTS 56.4 48.0 - 76.0 % [facility] LYMPHS 27.5 18.0 - 41.0 % [facility] MONOS 14.4(H) 4.0 - 11.0 % [facility] EOS 0.7 0.0 - 5.0 % [facility] BASOS 0.8 0.0 - 1.5 % [facility] Granulocytes, immature (%) 0.2 0.0 - 0.9 % [facility] ABSOLUTE NEUTS 3.36 1.92 - 7.60 K/uL [facility] ABSOLUTE LYMPHS 1.64 0.72 - 4.10 K/uL [facility] ABSOLUTE MONOS 0.86 0.16 - 1.10 K/uL [facility] ABSOLUTE EOS 0.04 0.00 - 0.50 K/uL [facility] ABSOLUTE BASOS 0.05 0.00 - 0.15 K/uL [facility] Granulocytes, immature 0.01 0.00 - 0.09 K/uL [facility] Blood 12/30/2024 11:5 5 AM EDT 12/30/2024 12:05 PM EDT us Yeyo Parmar MD LAB BLOOD BKR ORDERABLES Betsy l Result Performing Organization Address City/[facility]/ZIP Co de Phone Number [address] [address] * Magnesium (12/30/2024 11:55 AM EDT) MAGNESIUM 1.6 1.6 - 2.6 mg/dL [facility] Blood 12/30/2024 11:5 5 AM EDT 12/30/2024 12:05 PM EDT Yeyo Parmar MD LAB BLOOD BKR ORDERABLES Betsy l Result Performing Organization Address City/[facility]/ZIP Co de Phone Number [address] [address] * Hemoglobin A1c (12/30/2024 11:55 AM EDT) HEMOGLOBIN A1C 4.9 4.3 - 5.8 % [facility] Blood 12/30/2024 11:5 5 AM EDT 12/30/2024 12:05 PM EDT us Yeyo Parmar MD LAB BLOOD BKR ORDERABLES Betsy l Result Performing Organization Address City/[facility]/ZIP Co de Phone Number [address] [address] * (ABNORMAL) Lipid panel (05/20/2024 11:20 AM EDT) HDL 76 mg/dL [facility] Comment: Interpretation <40 mg/dL: Low HDL cholesterol (major risk factor for CHD) Greater than or equal to 60 mg/dL: High HDL cholesterol ( negative risk factor for CHD) HDL - cholesterol is affected by a number of factors, e.g. smoking, excerise, hormones, sex and age. CHOLESTEROL 203 0 - 240 mg/dL [facility] TRIGLYCERIDES 63 30 - 160 mg/dL [facility] LDL 114 50 - 129 mg/dL [facility] Comment: LDL levels in terms of risk for coronary heart disease: <100 mg/dL: Optimal 100-129 mg/dL: Near or above optimal 130-159 mg/dL: Borderline high 160-189 mg/dL: High >190 mg/dL: Very High CARDIAC RISK RATIO 2.7(L) 3.3 - 4.4 C [facility] Blood 05/20/2024 11:2 0 AM EDT 05/20/2024 11:23 AM EDT us Yeyo Parmar MD LAB BLOOD BKR ORDERABLES eBtsy garibay Result [facility] [address] [place] [address] * BD DXA AXIAL (SPINE) WITH HIP [...] 01/07/2025 Insurance MEDICARE PART A & B [place] [employer] SUPPLEMENT MEDICARE PART A & B [employer] MED[employer] SUPPLEMENT MEDICARE PART A & B [employer] SUPPLEMENT MEDICARE PART A & B [employer] SUPPLEMENT MEDICARE PART A & B [employer] MED[employer] SUPPLEMENT MEDICARE PART A & B [facility] MEDEX SUPPLEMENT MEDICARE PART A & B [employer] SUPPLEMENT MEDICARE PART A & B [employer] SUPPLEMENT MEDICARE PART A & B [employer] SUPPLEMENT Care Teams Grader Tender Relationship Specialty Start Date End Date Yeyo Parmar MD [address] [place] [address] PCP - General Internal Medicine 04/09/20 Yeyo Parmar MD [address] [place] [address] Insurance Assigned Provider 06/10/23 Additional Source Comments The information contained in this document represents components of the legal health record. It is not the complete legal health record.[facility]
--- OUTSIDE RECORDS SUMMARY | 2025-01-13 14:36 | XMS_ITS | Encounter Summary ---
Author Organization [facility] Address [address] [place] [address] Phone Care Team Providers Care Vice President Of Human Resources Name Role Phone Yeyo Parmar MD Primary Care Provider [phone] Yeyo Parmar MD Unavailable [phone] Encounter Details Date Type Department Care Team (Late st Contact Info) Description 12/30/2024 Orders Only [facility] Internal Medicine [address] [place] [address] Provider, MD Manav [address] [place], [place] [id number] Social History Tobacco Use Types Packs/Day Years [...] Description 06/16/2025 11:00 AM EDT Office Visit [facility] Internal Medicine [address] [place] [address] Yeyo Parmar MD [address] [place] [address] [email or web address] documented as of this encounter Procedures Procedure [...] documented as of this encounter Care Teams Vice President Of Human Resources Relationship Specialty Start Date End Date Yeyo Parmar MD [address] [place] [address] PCP - General Internal Medicine 04/09/20 Yeyo Parmar MD [address] [place] [address] Insurance Assigned Provider 06/10/23 documented as of this encounter Additional Source Comments The information contained in this document represents components of the legal health record. It is not the complete legal health record.[facility]
--- OUTSIDE RECORDS SUMMARY | 2025-01-13 14:36 | XMS_ITS | Encounter Summary ---
Author Organization [facility] Address [address] [place] [address] Phone Care Team Providers Care Fishing Hand Name Role Phone Yeyo Parmar MD Primary Care Provider [phone] Yeyo Parmar MD Unavailable Encounter Details Date Type Department Care Team (Late st Contact Info) Description 01/13/2025 Orders Only [facility] Internal Medicine [address] [place] [address] Provider, MD Manav [address] [place], [place] [id number] Social History Tobacco Use Types Packs/Day Years [...] 06/16/2025 11:00 AM EDT Office Visit [facility] Internal Medicine [address] [place] [address] Yeyo Parmar MD [address] [place] [address] documented as of this encounter Procedures Procedure Name Priority Date/Time Associated Diagnosis Comments OUTSIDE LAB Routine 01/10/2025 12:11 PM EST documented in this encounter Results * Outside Lab (Non-MGB) (01/10/2025 12:11 PM EST) Historical Provider LAB BLOOD BKR ORDERABLES Final Result documented in this encounter Visit Diagnoses Not on filedocumented in this encounter Additional Health Concerns Infection Onset Date Last Indicated Resolved Time CDiff-Risk 01/07/2025 01/07/2025 Assessment Noted Time PHQ-2 Depression Total Score: 0 12/25/19 25 4:25 PM EDT documented as of this encounter Care Teams Fishing Hand Relationship Specialty Start Date End Date Yeyo Parmar MD [address] [place] [address] PCP - General Internal Medicine 04/09/20 Yeyo Parmar MD [address] [place] [id number] [email or web address] Insurance Assigned Provider 06/10/23 documented as of this encounter Additional Source Comments The information contained in this document represents components of the legal health record. It is not the complete legal health record.[facility]
[2025-01-13 15:18] LABS: CDiff Gene PCR NEGATIVE (Negative)
== END 2025-01-13 12:20 | disposition home or self-care (01) ==
LOC: HO.LNP 12:19
PROVIDERS: Visit Provider Internal Medicine
DX: A09 Infectious gastroenteritis and colitis, unspecified (principal)
CPT/HCPCS: 87177; 87209; 87329; 87493; 87507